=== PATIENT | male | born 1970 | race Two or more races ===

== ENCOUNTER 2020-04-15 18:31 | Inpatient (IN) | payer OTHER ==
[~2020-04-15] VITALS: Ht 162.6 cm; Wt 87.7 kg
[2020-04-15] MEDS ORDERED: HEPARIN SODIUM (PORCINE) 5000 UNITS/ML 1ML VIAL ONE (18:57)
[2020-04-15] MEDS ORDERED: ASPirin 325 MG TAB ONE (18:58)
[2020-04-15] MEDS ORDERED: NITROGLYCERIN 0.4 MG SL TAB SL ONE ×2 (18:58→19:00)
[2020-04-15] MEDS ORDERED: HEPARIN SODIUM (PORCINE) 5000 UNITS/ML 1ML VIAL IV ONE (19:00)
[2020-04-15] MEDS ORDERED: ASPirin 81 mg TAB PO ONE (19:00)
[2020-04-15] MEDS ORDERED: IODIXANOL 320MG/ML 100ML BTL IV ONE (19:05)
[2020-04-15] MEDS ORDERED: LIDOCAINE 2%HCL (LOCAL ANESTH.) INJ 20ML MDV ONE (19:05)
[2020-04-15] MEDS ORDERED: ANGIOMAX 250 MG VIAL IV ONE (19:09)
[2020-04-15] MEDS ORDERED: VERAPAMIL 2.5MG/ML INJ 2ML VIAL IV ONE (19:09)
[2020-04-15] MEDS ORDERED: fentaNYL CITRATE 100 MCG/2 ML VL ONE (19:10)
[2020-04-15] MEDS ORDERED: SODIUM CHL 0.9% 50 ML ONE (19:10)
[2020-04-15] MEDS ORDERED: MIDAZOLAM HCL 1MG/1ML-2 ML VIAL ONE (19:12)
[2020-04-15] MEDS ORDERED: OMEP-434 PO (19:32)
[2020-04-15] MEDS ORDERED: ATROPINE SULF 1 MG/10ml SYR ONE (19:46)
[2020-04-15] MEDS ORDERED: LIDOCAINE HCL 100 MG/5ML (2%) SYRG INJ IV ONE (19:47)
[2020-04-15] MEDS ORDERED: EPTIFIBATIDE INJ (2MG/ML) 10ML VIAL IV ONE (19:49)
[2020-04-15] MEDS ORDERED: TICAGRELOR 90 MG TAB ONE (19:55)
[2020-04-15 19:57] LABS: Anion Gap 4 (5-15); Basophils # (auto) 0.1 10 ^3/uL (0-0.2); Basophils % (auto) 0.7 % (0.0-2.0); Calcium 8.4 mg/dL (8.5-10.1); Carbon Dioxide 27 mmol/L (21-32); Chloride 105 mmol/L (98-107); Eosinophils # (auto) 0.1 10 ^3/uL (0-0.8); Eosinophils % (auto) 0.9 % (0.0-7.0); GFR African American 88 mL/min; GFR Non-African American 73 mL/min; Glucose 152 mg/dL (74-106); Hematocrit 46.1 % (41.0-53.0); Hemoglobin 16.2 g/dL (13.5-17.5); Lymphocytes # (auto) 2.5 10 ^3/uL (0.4-5.4); Mean Corpuscular Hemoglobin 33.9 pg (28.0-32.0); Mean Corpuscular Hgb Conc. 35.1 g/dL (32.0-36.0); Mean Corpuscular Volume 96.8 fL (80.0-100.0); Monocytes # (auto) 0.8 10 ^3/uL (0-1.3); Monocytes % (auto) 8.6 % (0.0-12.0); Neutrophils # (auto) 5.5 10 ^3/uL (1.6-8.6); Neutrophils % (auto) 61.8 % (37.0-80.0); Nucleated Red Blood Cells % 0.1 %; Platelet Count (auto) 201 10^3/uL (140-450); Potassium 3.7 mmol/L (3.5-5.1); Red Blood Cells 4.77 10^6/uL (4.5-5.90); Red Cell Distribution Width 13.2 % (11.8-14.3); Sodium 136 mmol/L (136-145)
[2020-04-15] MEDS ORDERED: ACETAMINOPHEN 500 MG TAB PO PRN (20:00)
[2020-04-15] MEDS ORDERED: ONDANSETRON HCL 4 MG/2 ML VIAL IV PRN (20:00)
[2020-04-15] MEDS ORDERED: SODIUM CHLORIDE 0.9% 1,000 ML IV SCH (20:00)
[2020-04-15 20:09] LABS: Blood Urea Nitrogen 17 mg/dL (7-18)
[2020-04-15] MEDS ORDERED: MORPHINE SULF INJ 2 MG/ML SYRINGE 1ML IV PRN (20:15)
[2020-04-15] MEDS ORDERED: NITROGLYCERIN 0.4 MG SL TAB SL PRN (20:15)
[2020-04-15 21:00] VITALS: BP 138/78
[2020-04-15] MEDS: ATORVASTATIN 20 MG TAB PO SCH (21:20)
[2020-04-15] MEDS: SODIUM CHLOR 0.9% PF (SALINE LOCK) 10ML VIAL/SYR IV SCH (21:20)
[2020-04-15 22:00] VITALS: BP 138/78
[2020-04-15] MEDS: HYDROcodone-ACET 5/325MG TAB PO PRN (23:17)
[2020-04-16] MEDS: SODIUM CHLORIDE 0.9% 1,000 ML IV SCH ×2 (00:07→09:35)
[2020-04-16] MEDS ORDERED: TERA2CAP45 PO (01:13)
[2020-04-16 05:00] VITALS: BP 134/77
[2020-04-16] MEDS: SODIUM CHLOR 0.9% PF (SALINE LOCK) 10ML VIAL/SYR IV SCH ×3 (05:40→21:45)
[2020-04-16] MEDS ORDERED: TICAGRELOR 90 MG TAB PO SCH ×2 (06:00→22:00)
[2020-04-16] MEDS: HYDROcodone-ACET 5/325MG TAB PO PRN ×2 (07:03→18:52)
[2020-04-16 09:00] VITALS: BP 134/70
[2020-04-16 09:35] LABS: Basophils # (auto) 0 10 ^3/uL (0-0.2); Basophils % (auto) 0.2 % (0.0-2.0); Eosinophils # (auto) 0 10 ^3/uL (0-0.8); Eosinophils % (auto) 0.4 % (0.0-7.0); Hematocrit 43.9 % (41.0-53.0); Hemoglobin 14.7 g/dL (13.5-17.5); Lymphocytes # (auto) 1.1 10 ^3/uL (0.4-5.4); Lymphocytes % (auto) 14.1 % (10.0-50.0); Mean Corpuscular Hemoglobin 32.3 pg (28.0-32.0); Mean Corpuscular Hgb Conc. 33.6 g/dL (32.0-36.0); Mean Corpuscular Volume 96.4 fL (80.0-100.0); Monocytes # (auto) 0.6 10 ^3/uL (0-1.3); Monocytes % (auto) 6.9 % (0.0-12.0); Neutrophils # (auto) 6.3 10 ^3/uL (1.6-8.6); Neutrophils % (auto) 78.4 % (37.0-80.0); Platelet Count (auto) 165 10^3/uL (140-450); Red Blood Cells 4.56 10^6/uL (4.5-5.90); Red Cell Distribution Width 13.2 % (11.8-14.3)
[2020-04-16 09:56] LABS: BUN/Creatinine Ratio 12.2; Potassium 3.7 mmol/L (3.5-5.1)
[2020-04-16] MEDS: LISINOPRIL 5 MG TAB PO SCH (10:03)
[2020-04-16] MEDS: ASPirin 81 mg TAB PO SCH (10:03)
[2020-04-16 11:54] LABS: Cholesterol 158 mg/dL (< 200)
[2020-04-16 11:56] LABS: HDL Cholesterol 27 mg/dL (40-59); Triglycerides 413 mg/dL (< 150)
[2020-04-16 13:00] VITALS: BP 137/86
[2020-04-16 17:00] VITALS: BP 123/86
[2020-04-16] MEDS ORDERED: CLOPIDOGREL 300 MG TAB PO ONE (18:00)
[2020-04-16] MEDS: CARVEDILOL 3.125 MG TAB PO SCH (21:45)
[2020-04-16] MEDS: ATORVASTATIN 20 MG TAB PO SCH (21:45)
[2020-04-16 22:00] VITALS: BP 120/79
[2020-04-17] MEDS: SODIUM CHLORIDE 0.9% 1,000 ML IV SCH (00:27)
[2020-04-17 05:00] VITALS: BP 121/73
[2020-04-17] MEDS: SODIUM CHLOR 0.9% PF (SALINE LOCK) 10ML VIAL/SYR IV SCH (05:49)
[2020-04-17 09:00] VITALS: BP 156/90
[2020-04-17 09:38] VITALS: BP 136/82
[2020-04-17] MEDS ORDERED: CLOPIDOGREL BISULFATE 75 MG TAB PO SCH (10:00)
[2020-04-17] MEDS: CARVEDILOL 3.125 MG TAB PO SCH (10:00)
[2020-04-17] MEDS: ASPirin 81 mg TAB PO SCH (11:04)
[2020-04-17] MEDS: LISINOPRIL 5 MG TAB PO SCH (11:05)
[2020-04-17 12:32] VITALS: BP 136/82
[2020-04-17 13:00] VITALS: BP 131/94
== END 2020-04-17 15:00 | disposition home or self-care (01) | DRG 247 ==
LOC: ER 18:31 → CATH 1 19:15 → TELE 19:16 → TELE-WESTW 21:33
PROVIDERS: ADMIT Internal Medicine; ATTEND Internal Medicine
PROC: 027034Z Dilation of Coronary Artery, One Artery with Drug-eluting Intraluminal Device, Percutaneous Approach (ICD-10-PCS; principal; 2020-04-15)
PROC: 4A023N7 Measurement of Cardiac Sampling and Pressure, Left Heart, Percutaneous Approach (ICD-10-PCS; 2020-04-15)
PROC: B211YZZ Fluoroscopy of Multiple Coronary Arteries using Other Contrast (ICD-10-PCS; 2020-04-15)
DX: I21.19 ST elevation (STEMI) myocardial infarction involving other coronary artery of inferior wall (principal); F12.10 Cannabis abuse, uncomplicated; G89.29 Other chronic pain; I10 Essential (primary) hypertension; I25.10 Atherosclerotic heart disease of native coronary artery without angina pectoris; I73.9 Peripheral vascular disease, unspecified; K21.9 Gastro-esophageal reflux disease without esophagitis
CPT/HCPCS: 36415; 80048; 80061; 84484; 85025; 87081; 92928; 93306; 93458; 96374; 99152; 99153; 99291; C1874; C1887; G0378; J2250; Q9967

== ENCOUNTER 2020-12-03 19:27 | Emergency (ER) | payer OTHER ==
[~2020-12-03] VITALS: Ht 162.6 cm; Wt 81.6 kg
[~2020-12-03 19:27] MED LIST: OMEP-434 PO; TERA2CAP45 PO
[2020-12-03 22:03] LABS: Albumin 3.9 g/dL (3.4-5.0); Anion Gap 8 (5-15); Blood Urea Nitrogen 25 mg/dL (7-18); Calcium 8.8 mg/dL (8.5-10.1); Carbon Dioxide 25 mmol/L (21-32); Chloride 106 mmol/L (98-107); Glucose 134 mg/dL (74-106); Potassium 3.8 mmol/L (3.5-5.1); Sodium 139 mmol/L (136-145)
[2020-12-03 22:08] LABS: Alanine Aminotransferase 53 U/L (16-61); Alkaline Phosphatase 87 U/L (45-117); Aspartate Aminotransferase 32 U/L (15-37); BUN/Creatinine Ratio 28.7; Bilirubin, Total 0.4 mg/dL (0.2-1.0); GFR African American 119 mL/min; GFR Non-African American 98 mL/min; Total Protein 7.2 g/dL (6.4-8.2)
[2020-12-03] MEDS ORDERED: LORazepam 0.5 MG TAB PO ONE (23:15)
[2020-12-04] VITALS: BP 105/58
== END 2020-12-03 23:14 | disposition home or self-care (01) ==
LOC: ER 19:27
DX: R07.89 Other chest pain (principal); F41.9 Anxiety disorder, unspecified; K21.9 Gastro-esophageal reflux disease without esophagitis; E78.5 Hyperlipidemia, unspecified; I10 Essential (primary) hypertension
CPT/HCPCS: 36415; 71045; 80053; 83880; 84484; 93005

== ENCOUNTER 2021-05-02 17:50 | Emergency (ER) | payer OTHER ==
[~2021-05-02] VITALS: Ht 165.1 cm; Wt 81.6 kg
[2021-05-02 18:38] LABS: Basophils # (auto) 0 10 ^3/uL (0-0.2); Basophils % (auto) 0.5 % (0.0-2.0); Eosinophils # (auto) 0.1 10 ^3/uL (0-0.8); Eosinophils % (auto) 0.9 % (0.0-7.0); Hematocrit 41.1 % (41.0-53.0); Hemoglobin 14.7 g/dL (13.5-17.5); Lymphocytes # (auto) 2.1 10 ^3/uL (0.4-5.4); Lymphocytes % (auto) 29.4 % (10.0-50.0); Mean Corpuscular Hemoglobin 34.6 pg (28.0-32.0); Mean Corpuscular Hgb Conc. 35.9 g/dL (32.0-36.0); Mean Corpuscular Volume 96.4 fL (80.0-100.0); Monocytes # (auto) 0.7 10 ^3/uL (0-1.3); Monocytes % (auto) 9.2 % (0.0-12.0); Neutrophils # (auto) 4.3 10 ^3/uL (1.6-8.6); Red Blood Cells 4.26 10^6/uL (4.5-5.90); Red Cell Distribution Width 12.8 % (11.8-14.3); White Blood Cell 7.2 10^3/uL (4.4-10.8)
[2021-05-02 18:52] LABS: Albumin 3.8 g/dL (3.4-5.0); Anion Gap 4 (5-15); Blood Urea Nitrogen 22 mg/dL (7-18); Calcium 8.2 mg/dL (8.5-10.1); Carbon Dioxide 24 mmol/L (21-32); Chloride 111 mmol/L (98-107); Glucose 98 mg/dL (74-106); Potassium 4.2 mmol/L (3.5-5.1); Sodium 139 mmol/L (136-145)
[2021-05-02 18:54] LABS: Alanine Aminotransferase 34 U/L (16-61); Aspartate Aminotransferase 16 U/L (15-37); BUN/Creatinine Ratio 27.5; GFR African American 131 mL/min; GFR Non-African American 108 mL/min
[2021-05-02 18:59] LABS: Alkaline Phosphatase 76 U/L (45-117); Bilirubin, Total 0.3 mg/dL (0.2-1.0); Total Protein 7.4 g/dL (6.4-8.2)
[2021-05-02 23:00] VITALS: BP 128/81
== END 2021-05-02 23:07 | disposition home or self-care (01) ==
LOC: ER 17:50
DX: R07.89 Other chest pain (principal); F12.10 Cannabis abuse, uncomplicated; I10 Essential (primary) hypertension; I25.2 Old myocardial infarction; E78.5 Hyperlipidemia, unspecified; Z95.1 Presence of aortocoronary bypass graft
CPT/HCPCS: 36415; 71045; 80053; 84484; 85025; 93005

== ENCOUNTER 2021-08-03 14:00 | Emergency (ER) | payer OTHER ==
[~2021-08-03] VITALS: Ht 162.6 cm; Wt 77.1 kg
[2021-08-03] MEDS ORDERED: ASPirin 81 mg TAB PO ONE (14:30)
[2021-08-03 15:23] LABS: Basophils # (auto) 0 10 ^3/uL (0-0.2); Basophils % (auto) 0.4 % (0.0-2.0); Eosinophils # (auto) 0.1 10 ^3/uL (0-0.8); Eosinophils % (auto) 0.8 % (0.0-7.0); Hematocrit 42.5 % (41.0-53.0); Hemoglobin 14.7 g/dL (13.5-17.5); Lymphocytes # (auto) 1.2 10 ^3/uL (0.4-5.4); Lymphocytes % (auto) 17.4 % (10.0-50.0); Mean Corpuscular Hemoglobin 33.2 pg (28.0-32.0); Mean Corpuscular Hgb Conc. 34.7 g/dL (32.0-36.0); Mean Corpuscular Volume 95.5 fL (80.0-100.0); Monocytes # (auto) 0.4 10 ^3/uL (0-1.3); Neutrophils # (auto) 5.1 10 ^3/uL (1.6-8.6); Neutrophils % (auto) 75.4 % (37.0-80.0); Nucleated Red Blood Cells % 0.1 %; Red Blood Cells 4.44 10^6/uL (4.5-5.90); Red Cell Distribution Width 12.5 % (11.8-14.3); White Blood Cell 6.8 10^3/uL (4.4-10.8)
[2021-08-03 15:52] LABS: Albumin 3.5 g/dL (3.4-5.0); Calcium 8.2 mg/dL (8.5-10.1); Magnesium 2.5 mg/dL (1.6-2.6); Potassium 3.8 mmol/L (3.5-5.1)
[2021-08-03 15:58] LABS: BUN/Creatinine Ratio 22.3; Bilirubin, Total 0.4 mg/dL (0.2-1.0); Total Protein 7.1 g/dL (6.4-8.2)
[2021-08-03 19:53] VITALS: BP 114/72
== END 2021-08-03 16:59 | disposition short-term general hospital (02) ==
LOC: ER 14:00
DX: I24.9 Acute ischemic heart disease, unspecified (principal); F12.10 Cannabis abuse, uncomplicated; I25.2 Old myocardial infarction; I10 Essential (primary) hypertension; E78.5 Hyperlipidemia, unspecified; Z20.822 Contact with and (suspected) exposure to COVID-19; Z98.61 Coronary angioplasty status
CPT/HCPCS: 36415; 71046; 80053; 83735; 84484; 85025; 85379; 87426; 93005

== ENCOUNTER 2022-05-15 19:20 | Inpatient (IN) | payer OTHER ==
[~2022-05-15] VITALS: Ht 162.6 cm; Wt 80.6 kg
[2022-05-15 20:32] LABS: Hemoglobin 13.8 g/dL (13.5-17.5); Mean Corpuscular Volume 99.3 fL (80.0-100.0)
[2022-05-15 20:36] LABS: Basophils # (auto) 0 10 ^3/uL (0-0.2); Basophils % (auto) 0.6 % (0.0-2.0); Eosinophils # (auto) 0.1 10 ^3/uL (0-0.8); Eosinophils % (auto) 1.4 % (0.0-7.0); Hematocrit 40.5 % (41.0-53.0); Lymphocytes % (auto) 33.7 % (10.0-50.0); Mean Corpuscular Hemoglobin 33.9 pg (28.0-32.0); Mean Corpuscular Hgb Conc. 34.2 g/dL (32.0-36.0); Monocytes # (auto) 0.6 10 ^3/uL (0-1.3); Monocytes % (auto) 9.7 % (0.0-12.0); Neutrophils # (auto) 3.3 10 ^3/uL (1.6-8.6); Neutrophils % (auto) 54.6 % (37.0-80.0); Nucleated Red Blood Cells % 0.1 %; Red Blood Cells 4.08 10^6/uL (4.5-5.90); White Blood Cell 6.1 10^3/uL (4.4-10.8)
[2022-05-15] MEDS ORDERED: ASPirin 325 MG TAB PO ONE (20:45)
[2022-05-15 20:47] LABS: Albumin 3.5 g/dL (3.4-5.0); Calcium 8.3 mg/dL (8.5-10.1); Potassium 3.9 mmol/L (3.5-5.1)
[2022-05-15 20:50] LABS: BUN/Creatinine Ratio 30.1
[2022-05-15 20:56] LABS: Bilirubin, Total 0.4 mg/dL (0.2-1.0); Total Protein 6.6 g/dL (6.4-8.2)
[2022-05-16] MEDS ORDERED: ONDANSETRON HCL 4 MG/2 ML VIAL IV PRN (04:30)
[2022-05-16] MEDS ORDERED: NITROGLYCERIN 0.4 MG SL TAB SL PRN (04:30)
[2022-05-16] MEDS ORDERED: MORPHINE SULFATE INJ 2 MG/ml SYRG IV PRN (04:30)
[2022-05-16] MEDS ORDERED: ACETAMINOPHEN 325 MG TAB PO PRN (04:30)
[2022-05-16] MEDS: PANTOPRAZOLE 40 MG TAB PO SCH (09:42)
[2022-05-16] MEDS: ENOXAPARIN SOD 40 MG/0.4 ML SYRINGE SC SCH (09:42)
[2022-05-16] MEDS: ASPirin 81 mg TAB PO SCH (09:43)
[2022-05-16 22:00] VITALS: BP 136/81
[2022-05-16] MEDS: ATORVASTATIN 20 MG TAB PO SCH (22:30)
[2022-05-16] MEDS: TEMAZEPAM 15 MG CAP PO PRN (22:31)
[2022-05-16] MEDS ORDERED: CARV3.1240 PO (22:33)
[2022-05-16] MEDS ORDERED: LISI-275 PO (22:33)
[2022-05-16] MEDS ORDERED: ROSU1TAB14 PO (22:33)
[2022-05-16] MEDS ORDERED: MIRT1TAB38 PO (22:33)
[2022-05-16] MEDS ORDERED: ASPI1TAB20 PO (22:33)
[2022-05-17 05:00] VITALS: BP 128/80
[2022-05-17 06:12] LABS: Hemoglobin 14.1 g/dL (13.5-17.5); White Blood Cell 5.7 10^3/uL (4.4-10.8)
[2022-05-17 06:16] LABS: Basophils # (auto) 0 10 ^3/uL (0-0.2); Basophils % (auto) 0.5 % (0.0-2.0); Eosinophils # (auto) 0.1 10 ^3/uL (0-0.8); Eosinophils % (auto) 1.3 % (0.0-7.0); Hematocrit 40.1 % (41.0-53.0); Lymphocytes # (auto) 1.7 10 ^3/uL (0.4-5.4); Lymphocytes % (auto) 30.7 % (10.0-50.0); Mean Corpuscular Hemoglobin 33.8 pg (28.0-32.0); Mean Corpuscular Volume 96.6 fL (80.0-100.0); Monocytes # (auto) 0.5 10 ^3/uL (0-1.3); Monocytes % (auto) 9.1 % (0.0-12.0); Neutrophils # (auto) 3.3 10 ^3/uL (1.6-8.6); Neutrophils % (auto) 58.4 % (37.0-80.0); Nucleated Red Blood Cells % 0.3 %; Red Blood Cells 4.16 10^6/uL (4.5-5.90); Red Cell Distribution Width 13.1 % (11.8-14.3)
[2022-05-17 06:32] LABS: Albumin 3.5 g/dL (3.4-5.0); BUN/Creatinine Ratio 22.6; Calcium 8.3 mg/dL (8.5-10.1); Potassium 3.9 mmol/L (3.5-5.1)
[2022-05-17 06:35] LABS: Bilirubin, Total 0.5 mg/dL (0.2-1.0); Total Protein 6.3 g/dL (6.4-8.2)
[2022-05-17] MEDS ORDERED: ADENOSINE 63 MG in GIVE UN-DILUTED 0 ML IV ONE (08:00)
[2022-05-17 09:10] VITALS: BP 119/65
[2022-05-17] MEDS: ENOXAPARIN SOD 40 MG/0.4 ML SYRINGE SC SCH (10:00)
[2022-05-17] MEDS: PANTOPRAZOLE 40 MG TAB PO SCH (11:08)
[2022-05-17] MEDS: ASPirin 81 mg TAB PO SCH (11:08)
[2022-05-17 12:23] VITALS: BP 143/96
[2022-05-17 17:00] VITALS: BP 136/80
[2022-05-17 21:57] VITALS: BP 123/73
[2022-05-17] MEDS: ATORVASTATIN 20 MG TAB PO SCH (22:00)
[2022-05-18] MEDS: TEMAZEPAM 15 MG CAP PO PRN ×2 (00:03→23:01)
[2022-05-18 05:00] VITALS: BP 100/56
[2022-05-18 08:46] VITALS: BP 143/96
[2022-05-18] MEDS: ASPirin 81 mg TAB PO SCH (10:28)
[2022-05-18] MEDS: PANTOPRAZOLE 40 MG TAB PO SCH (10:28)
[2022-05-18] MEDS: ENOXAPARIN SOD 40 MG/0.4 ML SYRINGE SC SCH (10:29)
[2022-05-18 12:44] VITALS: BP 133/79
[2022-05-18 16:49] VITALS: BP 130/78
[2022-05-18] MEDS: ATORVASTATIN 20 MG TAB PO SCH (21:47)
[2022-05-18 22:17] VITALS: BP 132/77
[2022-05-19 04:57] VITALS: BP 101/68
[2022-05-19 09:11] VITALS: BP 143/90
[2022-05-19] MEDS: ENOXAPARIN SOD 40 MG/0.4 ML SYRINGE SC SCH (09:30)
[2022-05-19] MEDS: ASPirin 81 mg TAB PO SCH (09:30)
[2022-05-19] MEDS: PANTOPRAZOLE 40 MG TAB PO SCH (09:30)
[2022-05-19 10:08] VITALS: BP 123/72
== END 2022-05-19 10:00 | disposition home or self-care (01) | DRG 309 ==
LOC: ER 19:20 → TELE 05-16 04:26 → TELE-EAST 05-16 21:48
PROVIDERS: ADMIT Nurse Practitioner; ATTEND Family Medicine
DX: R00.1 Bradycardia, unspecified (principal); I25.110 Atherosclerotic heart disease of native coronary artery with unstable angina pectoris; R07.89 Other chest pain; I10 Essential (primary) hypertension; E78.00 Pure hypercholesterolemia, unspecified; K21.9 Gastro-esophageal reflux disease without esophagitis; Z20.822 Contact with and (suspected) exposure to COVID-19; I25.2 Old myocardial infarction; Z83.3 Family history of diabetes mellitus; Z95.5 Presence of coronary angioplasty implant and graft
CPT/HCPCS: 36415; 71045; 78452; 80053; 82550; 83605; 83880; 84443; 84484; 85025; 85379; 93005; 93017; 93306; G0378; J0153

== ENCOUNTER 2022-09-15 11:40 | Inpatient (IN) | payer OTHER ==
[~2022-09-15] VITALS: Ht 165.1 cm; Wt 79.8 kg
[~2022-09-15 11:40] MED LIST changes: +ASPI1TAB20 PO; +CARV3.1240 PO; +LISI-275 PO; +MIRT1TAB38 PO; +ROSU1TAB14 PO
[2022-09-15] MEDS ORDERED: ONDANSETRON ODT 4 MG TAB PO ONE (12:00)
[2022-09-15] MEDS ORDERED: HYDROcodone-ACET 5/325MG TAB PO ONE (12:00)
[2022-09-15] MEDS ORDERED: ASPirin 81 mg TAB PO ONE (12:00)
[2022-09-15 12:06] LABS: Basophils # (auto) 0 10 ^3/uL (0-0.2); Basophils % (auto) 0.6 % (0.0-2.0); Eosinophils # (auto) 0 10 ^3/uL (0-0.8); Eosinophils % (auto) 0.4 % (0.0-7.0); Hematocrit 43.5 % (41.0-53.0); Hemoglobin 15.1 g/dL (13.5-17.5); Lymphocytes % (auto) 35.6 % (10.0-50.0); Mean Corpuscular Hemoglobin 33.1 pg (28.0-32.0); Mean Corpuscular Hgb Conc. 34.7 g/dL (32.0-36.0); Mean Corpuscular Volume 95.5 fL (80.0-100.0); Monocytes # (auto) 0.6 10 ^3/uL (0-1.3); Monocytes % (auto) 7.1 % (0.0-12.0); Neutrophils # (auto) 4.8 10 ^3/uL (1.6-8.6); Neutrophils % (auto) 56.3 % (37.0-80.0); Red Blood Cells 4.55 10^6/uL (4.5-5.90); Red Cell Distribution Width 12.9 % (11.8-14.3); White Blood Cell 8.5 10^3/uL (4.4-10.8)
[2022-09-15 12:23] LABS: Magnesium 2.1 mg/dL (1.6-2.6); Potassium 3.9 mmol/L (3.5-5.1)
[2022-09-15 12:25] LABS: BUN/Creatinine Ratio 16.9
[2022-09-15 12:28] LABS: Bilirubin, Total 0.4 mg/dL (0.2-1.0); Total Protein 7.1 g/dL (6.4-8.2)
[2022-09-15 13:21] LABS: Urine Bacteria NONE SEEN /hpf (None Seen); Urine Blood Negative /uL (Negative); Urine Mucus FEW (None Seen); Urine Specific Gravity 1.024 (1.001-1.035); Urine WBC 1 /hpf (0 - 3)
[2022-09-15] MEDS ORDERED: MORPHINE SULFATE 4 MG/ML SYR/VIAL IV PRN (18:15)
[2022-09-15] MEDS ORDERED: MAALOX PLUS or MAALOX 30 ML PO ONE (18:15)
[2022-09-15] MEDS ORDERED: ACETAMINOPHEN 325 MG TAB PO PRN (18:15)
[2022-09-15] MEDS ORDERED: ONDANSETRON HCL 4 MG/2 ML VIAL IV PRN (18:15)
[2022-09-15] MEDS ORDERED: DEXTROSE (50%) 50ML SYRG IV PRN (18:15)
[2022-09-15] MEDS ORDERED: NITROGLYCERIN 0.4 MG SL TAB SL PRN (18:15)
[2022-09-15] MEDS: ATORVASTATIN 20 MG TAB PO SCH (22:00)
[2022-09-15] MEDS: CARVEDILOL 3.125 MG TAB PO SCH (23:04)
[2022-09-15] MEDS: InsuLIN REG 1unit/0.01ml Soln (100units/ml) SC SCH (23:05)
[2022-09-16 06:29] LABS: Basophils # (auto) 0 10 ^3/uL (0-0.2); Basophils % (auto) 0.3 % (0.0-2.0); Eosinophils # (auto) 0.1 10 ^3/uL (0-0.8); Eosinophils % (auto) 1.5 % (0.0-7.0); Hematocrit 39.3 % (41.0-53.0); Hemoglobin 13.4 g/dL (13.5-17.5); Lymphocytes # (auto) 1.7 10 ^3/uL (0.4-5.4); Lymphocytes % (auto) 32.1 % (10.0-50.0); Mean Corpuscular Hemoglobin 32.6 pg (28.0-32.0); Mean Corpuscular Volume 95.8 fL (80.0-100.0); Monocytes # (auto) 0.6 10 ^3/uL (0-1.3); Monocytes % (auto) 11.2 % (0.0-12.0); Neutrophils # (auto) 2.9 10 ^3/uL (1.6-8.6); Neutrophils % (auto) 54.9 % (37.0-80.0); Nucleated Red Blood Cells % 0.2 %; Red Cell Distribution Width 12.5 % (11.8-14.3); White Blood Cell 5.3 10^3/uL (4.4-10.8)
[2022-09-16 06:47] LABS: BUN/Creatinine Ratio 28.4; Calcium 8.6 mg/dL (8.5-10.1)
[2022-09-16] MEDS: InsuLIN REG 1unit/0.01ml Soln (100units/ml) SC SCH ×4 (07:00→23:11)
[2022-09-16] MEDS: DOCUSATE SOD 100 MG CAP PO SCH (09:49)
[2022-09-16] MEDS: CLOPIDOGREL BISULFATE 75 MG TAB PO SCH (09:49)
[2022-09-16] MEDS: ASPirin 81 mg TAB PO SCH (09:49)
[2022-09-16] MEDS: CARVEDILOL 3.125 MG TAB PO SCH ×2 (09:50→23:11)
[2022-09-16] MEDS: LISINOPRIL 5 MG TAB PO SCH (09:50)
[2022-09-16] MEDS: ACCU-CHEK COMFORT CURVE STRIP VI SCH ×3 (11:30→23:11)
[2022-09-16] MEDS: HYDROcodone-ACET 5/325MG TAB PO PRN (15:32)
[2022-09-16 22:39] VITALS: BP 132/87
[2022-09-16] MEDS: ATORVASTATIN 20 MG TAB PO SCH (23:12)
[2022-09-16] MEDS ORDERED: PANT40TA2 PO (23:25)
[2022-09-17 05:00] VITALS: BP 110/63
[2022-09-17 08:00] VITALS: BP 120/58
[2022-09-17 08:30] VITALS: BP 120/58
[2022-09-17] MEDS: ASPirin 81 mg TAB PO SCH (10:03)
[2022-09-17] MEDS: DOCUSATE SOD 100 MG CAP PO SCH (10:03)
[2022-09-17] MEDS: CLOPIDOGREL BISULFATE 75 MG TAB PO SCH (10:03)
[2022-09-17] MEDS: LISINOPRIL 5 MG TAB PO SCH (10:04)
[2022-09-17] MEDS: CARVEDILOL 3.125 MG TAB PO SCH ×2 (10:05→21:43)
[2022-09-17 12:25] VITALS: BP 132/81
[2022-09-17] MEDS ORDERED: MELO1TAB56 PO (14:15)
[2022-09-17 16:25] VITALS: BP 135/78
[2022-09-17] MEDS: ATORVASTATIN 20 MG TAB PO SCH (21:43)
[2022-09-17] MEDS: ZOLPIDEM TARTRATE 5 MG TAB PO PRN (21:43)
[2022-09-17 22:00] VITALS: BP 139/79
[2022-09-18 05:00] VITALS: BP 119/76
[2022-09-18 09:00] VITALS: BP 118/68
[2022-09-18] MEDS: ASPirin 81 mg TAB PO SCH (10:19)
[2022-09-18] MEDS: DOCUSATE SOD 100 MG CAP PO SCH (10:19)
[2022-09-18] MEDS: PANTOPRAZOLE 40 MG TAB PO SCH (10:22)
[2022-09-18] MEDS: CARVEDILOL 3.125 MG TAB PO SCH ×2 (10:22→22:00)
[2022-09-18] MEDS: CLOPIDOGREL BISULFATE 75 MG TAB PO SCH (10:22)
[2022-09-18] MEDS: HYDROcodone-ACET 5/325MG TAB PO PRN (12:11)
[2022-09-18 13:00] VITALS: BP 130/74
[2022-09-18 17:00] VITALS: BP 139/79
[2022-09-18 22:00] VITALS: BP 133/84
[2022-09-18] MEDS: ATORVASTATIN 20 MG TAB PO SCH (22:49)
[2022-09-18] MEDS: ZOLPIDEM TARTRATE 5 MG TAB PO PRN (22:53)
[2022-09-19 05:00] VITALS: BP 103/49
[2022-09-19] MEDS ORDERED: ADENOSINE 70 MG in GIVE UN-DILUTED 0 ML IV STA (08:07)
[2022-09-19 09:00] VITALS: BP 124/80
[2022-09-19] MEDS: DOCUSATE SOD 100 MG CAP PO SCH (09:41)
[2022-09-19] MEDS: ASPirin 81 mg TAB PO SCH (09:41)
[2022-09-19] MEDS: PANTOPRAZOLE 40 MG TAB PO SCH (09:41)
[2022-09-19] MEDS: CLOPIDOGREL BISULFATE 75 MG TAB PO SCH (09:42)
[2022-09-19] MEDS: CARVEDILOL 3.125 MG TAB PO SCH ×2 (09:43→22:00)
[2022-09-19 13:00] VITALS: BP 124/77
[2022-09-19 17:02] VITALS: BP 124/88
[2022-09-19 20:00] VITALS: BP 129/85
[2022-09-19 22:00] VITALS: BP 129/85
[2022-09-19] MEDS: ATORVASTATIN 20 MG TAB PO SCH (22:17)
[2022-09-19] MEDS: ZOLPIDEM TARTRATE 5 MG TAB PO PRN (22:17)
[2022-09-20] VITALS (10 sets, daily range): BP systolic 119–153; BP diastolic 79–95
[2022-09-20] MEDS: CLOPIDOGREL BISULFATE 75 MG TAB PO SCH (08:06)
[2022-09-20] MEDS: PANTOPRAZOLE 40 MG TAB PO SCH (08:07)
[2022-09-20] MEDS: DOCUSATE SOD 100 MG CAP PO SCH (08:07)
[2022-09-20] MEDS: LORazepam 0.5 MG TAB PO PRN ×2 (08:07→21:26)
[2022-09-20] MEDS: ASPirin 81 mg TAB PO SCH (08:07)
[2022-09-20 09:47] LABS: INR 1.03 (0.9-1.15); Partial Thromboplastin Time 28.6 sec (24.6-33.4)
[2022-09-20] MEDS: CARVEDILOL 3.125 MG TAB PO SCH ×2 (10:00→21:28)
[2022-09-20] MEDS ORDERED: ANGIOMAX 250 MG VIAL IV ONE (13:28)
[2022-09-20] MEDS ORDERED: MIDAZOLAM HCL 2MG/2ML 2ml VIAL (1mg/ml) ONE (13:29)
[2022-09-20] MEDS ORDERED: VERAPAMIL 2.5MG/ML INJ 2ML VIAL IV ONE (13:29)
[2022-09-20] MEDS ORDERED: fentaNYL CITRATE 100 MCG/2 ML VL ONE (13:29)
[2022-09-20] MEDS ORDERED: SODIUM CHL 0.9% 50 ML ONE (13:29)
[2022-09-20] MEDS ORDERED: HEPARIN SODIUM (PORCINE) 5000 UNITS/ML 1ML VIAL ONE (13:29)
[2022-09-20] MEDS ORDERED: IODIXANOL 320MG/ML 100ML BTL IV ONE ×2 (13:29→14:02)
[2022-09-20] MEDS ORDERED: LIDOCAINE 2%HCL (LOCAL ANESTH.) INJ 20ML MDV ONE (13:30)
[2022-09-20] MEDS ORDERED: ATROPINE SULF 1 MG/10ml SYR ONE (14:06)
[2022-09-20] MEDS ORDERED: CLOPIDOGREL 300 MG TAB ONE (14:14)
[2022-09-20] MEDS: HYDROcodone-ACET 5/325MG TAB PO PRN (21:26)
[2022-09-20] MEDS: ATORVASTATIN 20 MG TAB PO SCH (21:27)
[2022-09-21 05:00] VITALS: BP 113/66
[2022-09-21 09:00] VITALS: BP 130/80
[2022-09-21] MEDS: CLOPIDOGREL BISULFATE 75 MG TAB PO SCH (10:14)
[2022-09-21] MEDS: ASPirin 81 mg TAB PO SCH (10:14)
[2022-09-21] MEDS: DOCUSATE SOD 100 MG CAP PO SCH (10:14)
[2022-09-21] MEDS: PANTOPRAZOLE 40 MG TAB PO SCH (10:14)
[2022-09-21] MEDS: CARVEDILOL 3.125 MG TAB PO SCH (10:15)
[2022-09-21] MEDS ORDERED: CLOP75TA70 PO (12:55)
[2022-09-21] MEDS ORDERED: CAR3125T PO (12:55)
[2022-09-21 13:00] VITALS: BP 132/84
[2022-09-21 14:35] VITALS: BP 130/80
== END 2022-09-21 15:00 | disposition home or self-care (01) | DRG 247 ==
LOC: ER 11:40 → TELE 18:20 → TELE-WESTW 09-16 21:14
PROVIDERS: ADMIT Hospitalist; ATTEND Internal Medicine
PROC: 027035Z Dilation of Coronary Artery, One Artery with Two Drug-eluting Intraluminal Devices, Percutaneous Approach (ICD-10-PCS; principal; 2022-09-20)
PROC: 4A023N7 Measurement of Cardiac Sampling and Pressure, Left Heart, Percutaneous Approach (ICD-10-PCS; 2022-09-20)
PROC: B211YZZ Fluoroscopy of Multiple Coronary Arteries using Other Contrast (ICD-10-PCS; 2022-09-20)
PROC: B215YZZ Fluoroscopy of Left Heart using Other Contrast (ICD-10-PCS; 2022-09-20)
DX: I25.110 Atherosclerotic heart disease of native coronary artery with unstable angina pectoris (principal); K21.9 Gastro-esophageal reflux disease without esophagitis; E66.9 Obesity, unspecified; Z68.30 Body mass index [BMI] 30.0-30.9, adult; Z20.822 Contact with and (suspected) exposure to COVID-19; F12.90 Cannabis use, unspecified, uncomplicated; I10 Essential (primary) hypertension; I50.9 Heart failure, unspecified; F41.9 Anxiety disorder, unspecified; E78.5 Hyperlipidemia, unspecified; Z79.82 Long term (current) use of aspirin; Z83.3 Family history of diabetes mellitus; I25.2 Old myocardial infarction
CPT/HCPCS: 36415; 71046; 78452; 80048; 80053; 81001; 82962; 83735; 83880; 84484; 85025; 85379; 85610; 85730; 87426; 92928; 92929; 93005; 93017; 93306; 93458; 99152; 99153; C1874; C1887; G0378; J0153; J2250; J2405; Q0162; Q9967

== ENCOUNTER 2022-10-09 12:34 | Emergency (ER) | payer OTHER ==
[~2022-10-09] VITALS: Ht 162.6 cm; Wt 78.3 kg
[~2022-10-09 12:34] MED LIST changes: +CAR3125T PO; -CARV3.1240 PO; +CLOP75TA70 PO; +MELO1TAB56 PO; -MIRT1TAB38 PO; -OMEP-434 PO; +PANT40TA2 PO; -TERA2CAP45 PO
[2022-10-09 13:38] LABS: Basophils # (auto) 0 10 ^3/uL (0-0.2); Basophils % (auto) 0.6 % (0.0-2.0); Eosinophils # (auto) 0 10 ^3/uL (0-0.8); Eosinophils % (auto) 0.6 % (0.0-7.0); Hematocrit 41.6 % (41.0-53.0); Hemoglobin 14.8 g/dL (13.5-17.5); Lymphocytes # (auto) 1.5 10 ^3/uL (0.4-5.4); Lymphocytes % (auto) 25.4 % (10.0-50.0); Mean Corpuscular Hemoglobin 33.4 pg (28.0-32.0); Mean Corpuscular Hgb Conc. 35.6 g/dL (32.0-36.0); Monocytes # (auto) 0.5 10 ^3/uL (0-1.3); Neutrophils # (auto) 3.8 10 ^3/uL (1.6-8.6); Neutrophils % (auto) 64.4 % (37.0-80.0); Nucleated Red Blood Cells % 0.1 %; Red Blood Cells 4.42 10^6/uL (4.5-5.90); Red Cell Distribution Width 12.3 % (11.8-14.3); White Blood Cell 5.9 10^3/uL (4.4-10.8)
[2022-10-09] MEDS ORDERED: IOHEXOL 350 MG/ML 100ML IJ ONE (13:38)
[2022-10-09 13:57] LABS: Albumin 3.8 g/dL (3.4-5.0); BUN/Creatinine Ratio 14.8; Calcium 8.9 mg/dL (8.5-10.1); Potassium 4.3 mmol/L (3.5-5.1)
[2022-10-09 14:01] LABS: Bilirubin, Total 0.6 mg/dL (0.2-1.0); Total Protein 7.4 g/dL (6.4-8.2)
[2022-10-09 18:20] VITALS: BP 129/82
== END 2022-10-09 18:24 | disposition home or self-care (01) ==
LOC: ER 12:34
DX: R68.84 Jaw pain (principal); I25.10 Atherosclerotic heart disease of native coronary artery without angina pectoris; K21.9 Gastro-esophageal reflux disease without esophagitis; E78.5 Hyperlipidemia, unspecified; F12.90 Cannabis use, unspecified, uncomplicated; I10 Essential (primary) hypertension; Z79.899 Other long term (current) drug therapy; Z98.890 Other specified postprocedural states; Z87.891 Personal history of nicotine dependence
CPT/HCPCS: 36415; 70496; 80053; 84484; 85025; 93005; 99285; Q9967

== ENCOUNTER 2024-06-15 13:50 | Inpatient (IN) | payer OTHER ==
[~2024-06-15] VITALS: Ht 162.6 cm; Wt 82.5 kg
[~2024-06-15 13:50] MED LIST changes: -CAR3125T PO; +CARV-214 PO; +MELO15TA29 PO; -MELO1TAB56 PO; -ROSU1TAB14 PO; +ROSU20TA56 PO
[2024-06-15 14:22] LABS: Basophils # (auto) 0 10 ^3/uL (0-0.2); Basophils % (auto) 0.4 % (0.0-2.0); Eosinophils # (auto) 0 10 ^3/uL (0-0.8); Eosinophils % (auto) 0.2 % (0.0-7.0); Hematocrit 45.4 % (41.0-53.0); Lymphocytes # (auto) 2.2 10 ^3/uL (0.4-5.4); Lymphocytes % (auto) 30.1 % (10.0-50.0); Mean Corpuscular Hemoglobin 34.5 pg (28.0-32.0); Mean Corpuscular Hgb Conc. 35.2 g/dL (32.0-36.0); Monocytes # (auto) 0.6 10 ^3/uL (0-1.3); Monocytes % (auto) 8.7 % (0.0-12.0); Neutrophils # (auto) 4.5 10 ^3/uL (1.6-8.6); Neutrophils % (auto) 60.6 % (37.0-80.0); Platelet Count (auto) 192 10^3/uL (140-450); Red Blood Cells 4.63 10^6/uL (4.5-5.90); Red Cell Distribution Width 12.6 % (11.8-14.3); White Blood Cell 7.4 10^3/uL (4.4-10.8)
[2024-06-15 14:34] LABS: Alanine Aminotransferase 28 U/L (7-40); Albumin 4.6 g/dL (3.2-4.8); Alkaline Phosphatase 78 U/L (46-116); Anion Gap 8 (5-15); Aspartate Aminotransferase 17 U/L (13-40); BUN/Creatinine Ratio 24.4 (10.0-20.0); Blood Urea Nitrogen 20 mg/dL (9-23); Calcium 9.7 mg/dL (8.7-10.4); Carbon Dioxide 22 mmol/L (20-31); Chloride 110 mmol/L (98-107); Glucose 92 mg/dL (74-106); Potassium 4.3 mmol/L (3.5-5.1); Sodium 140 mmol/L (136-145)
[2024-06-15 14:35] LABS: Bilirubin, Total 0.7 mg/dL (0.2-1.0); Total Protein 7.1 g/dL (5.7-8.2)
[2024-06-15] MEDS: ASPirin 325 MG TAB PO ONE (14:36)
[2024-06-15 14:46] VITALS: PULSE 52; RESP 18; O2SAT 96
[2024-06-15] MEDS: NITROGLYCERIN 0.4 MG SL TAB SL ONE (16:25)
[2024-06-15 19:20] VITALS: PULSE 62; RESP 19; O2SAT 96
[2024-06-15] MEDS ORDERED: DOCUSATE SOD 100 MG CAP PO PRN (20:15)
[2024-06-15] MEDS ORDERED: ACETAMINOPHEN 325 MG TAB PO PRN (20:15)
[2024-06-15] MEDS ORDERED: MORPHINE SULFATE INJ 2 MG/ml SYRG IV PRN ×2 (20:15→20:30)
[2024-06-15] MEDS: MORPHINE SULFATE INJ 2 MG/ml SYRG IM ONE (20:26)
[2024-06-15] MEDS ORDERED: NITROGLYCERIN 0.4 MG SL TAB SL PRN (20:30)
[2024-06-15] MEDS: ONDANSETRON HCL 4 MG/2 ML VIAL IV PRN (21:07)
[2024-06-15] MEDS: SODIUM CHLOR 0.9% PF (SALINE LOCK) 10ML VIAL/SYR IV SCH (22:21)
[2024-06-15] MEDS: ATORVASTATIN 20 MG TAB PO SCH (22:29)
[2024-06-15 23:00] VITALS: BP 139/84; PULSE 53; PULSE 57; RESP 17; RESP 18; TEMP 98.4; O2SAT 95; O2SAT 98
[2024-06-15] MEDS ORDERED: FAMO-12 PO (23:22)
[2024-06-15] MEDS ORDERED: PRAS10TA8 PO (23:22)
[2024-06-15] MEDS ORDERED: TERA1CAP52 PO (23:22)
[2024-06-15] MEDS ORDERED: TERA2CAP79 PO (23:22)
[2024-06-16] VITALS (14 sets, daily range): BP systolic 112–160; BP diastolic 62–92; PULSE 50–91; RESP 12–20; TEMP 97.4–98.3; O2SAT 93–99
[2024-06-16 09:32] LABS: Basophils # (auto) 0 10 ^3/uL (0-0.2); Basophils % (auto) 0.4 % (0.0-2.0); Eosinophils # (auto) 0 10 ^3/uL (0-0.8); Monocytes # (auto) 0.6 10 ^3/uL (0-1.3); White Blood Cell 6.1 10^3/uL (4.4-10.8)
[2024-06-16 09:37] LABS: Eosinophils % (auto) 0.7 % (0.0-7.0); Hematocrit 44.5 % (41.0-53.0); Hemoglobin 15.9 g/dL (13.5-17.5); Lymphocytes # (auto) 1.5 10 ^3/uL (0.4-5.4); Lymphocytes % (auto) 24.1 % (10.0-50.0); Mean Corpuscular Hemoglobin 35.2 pg (28.0-32.0); Mean Corpuscular Hgb Conc. 35.8 g/dL (32.0-36.0); Mean Corpuscular Volume 98.2 fL (80.0-100.0); Monocytes % (auto) 9.2 % (0.0-12.0); Neutrophils % (auto) 65.6 % (37.0-80.0); Nucleated Red Blood Cells % 0.1 %; Platelet Count (auto) 186 10^3/uL (140-450); Red Blood Cells 4.53 10^6/uL (4.5-5.90); Red Cell Distribution Width 12.6 % (11.8-14.3)
[2024-06-16] MEDS: ASPirin 81 mg TAB PO SCH (09:40)
[2024-06-16] MEDS: PANTOPRAZOLE 40 MG/10 ML VIAL INJ IV SCH (09:41)
[2024-06-16] MEDS: CLOPIDOGREL BISULFATE 75 MG TAB PO SCH (09:41)
[2024-06-16 09:50] LABS: Alanine Aminotransferase 28 U/L (7-40); Albumin 4.2 g/dL (3.2-4.8); Alkaline Phosphatase 77 U/L (46-116); Anion Gap 8 (5-15); Aspartate Aminotransferase 14 U/L (13-40); BUN/Creatinine Ratio 19.8 (10.0-20.0); Bilirubin, Total 0.6 mg/dL (0.2-1.0); Blood Urea Nitrogen 17 mg/dL (9-23); Calcium 9.4 mg/dL (8.7-10.4); Carbon Dioxide 23 mmol/L (20-31); Chloride 108 mmol/L (98-107); Glucose 130 mg/dL (74-106); Potassium 4.1 mmol/L (3.5-5.1); Sodium 139 mmol/L (136-145); Total Protein 6.8 g/dL (5.7-8.2)
[2024-06-16] MEDS: IODIXANOL 320MG/ML 100ML BTL IV ONE ×2 (12:37→14:17)
[2024-06-16] MEDS: HEPARIN IN NS 1000Units/500mL 1,500 ML ONE (12:37)
[2024-06-16 12:49] LABS: INR 1.03 (0.9-1.15); Partial Thromboplastin Time 28.8 SEC (24.5-34.5); Prothrombin Time 10.9 sec (9.3-11.8)
[2024-06-16] MEDS: VERAPAMIL 2.5MG/ML INJ 2ML VIAL IV ONE (13:09)
[2024-06-16] MEDS: fentaNYL CITRATE 100 MCG/2 ML VL ONE (13:09)
[2024-06-16] MEDS: HEPARIN SODIUM (PORCINE) 5000 UNITS/ML 1ML VIAL ONE (13:09)
[2024-06-16] MEDS: ANGIOMAX 250 MG VIAL IV ONE (13:09)
[2024-06-16] MEDS: SODIUM CHL 0.9% 50 ML ONE (13:10)
[2024-06-16] MEDS: MIDAZOLAM HCL 2MG/2ML 2ml VIAL (1mg/ml) ONE (13:10)
[2024-06-16] MEDS: LIDOCAINE 2%HCL (LOCAL ANESTH.) INJ 20ML MDV ONE (13:10)
[2024-06-16 13:39] LABS: Erythrocyte Sedimentation Rate 1 mm/hr (0-20)
[2024-06-16] MEDS: ATROPINE SULF 1 MG/10ml SYR ONE (14:17)
[2024-06-16] MEDS: CLOPIDOGREL BISULFATE 75 MG TAB ONE (14:17)
[2024-06-16] MEDS: LISINOPRIL 5 MG TAB PO ONE (18:51)
[2024-06-16 20:04] LABS: Urine Bacteria None Seen /hpf (None Seen)
[2024-06-16 20:17] LABS: Urine Blood Negative /uL (Negative); Urine Clarity Clear (Clear); Urine Color Yellow (Yellow); Urine Protein, UAD Negative (Negative); Urine Specific Gravity > 1.050 (1.001-1.035); Urine Urobilinogen 2 mg/dL (Negative); Urine WBC <1 /hpf (0 - 3)
[2024-06-16 20:30] LABS: Amphetamine Screen, Urine Neg (NEGATIVE)
[2024-06-16 20:31] LABS: Barbiturate Scree,Urine Neg (NEGATIVE); Benzodiazephine Screen, Urine Neg (NEGATIVE); Cannabinoid Screen, Urine Pos (NEGATIVE); Cocaine Screen, Urine Neg (NEGATIVE); Opiate Scree,Urine Neg (NEGATIVE); Phencyclidine Screen, Urine Neg (NEGATIVE)
[2024-06-16 21:43] LABS: COVID19 ANTIGEN SOFIA FIA NEGATIVE (NEGATIVE); Rapid Influenza A Negative (Negative); Rapid Influenza B Negative (Negative)
[2024-06-16] MEDS: ATORVASTATIN 20 MG TAB PO SCH (22:48)
[2024-06-16] MEDS: HYDROcodone-ACET 5/325MG TAB PO PRN (22:49)
[2024-06-17 01:00] VITALS: BP 123/73; PULSE 52; RESP 20; TEMP 98.1; O2SAT 97
[2024-06-17 05:00] VITALS: BP 117/78; PULSE 54; RESP 19; TEMP 98.2; O2SAT 96
[2024-06-17 07:02] LABS: Basophils # (auto) 0 10 ^3/uL (0-0.2); Basophils % (auto) 0.4 % (0.0-2.0); Eosinophils # (auto) 0.1 10 ^3/uL (0-0.8); Eosinophils % (auto) 1.2 % (0.0-7.0); Hematocrit 45.1 % (41.0-53.0); Hemoglobin 15.8 g/dL (13.5-17.5); Lymphocytes # (auto) 1.5 10 ^3/uL (0.4-5.4); Lymphocytes % (auto) 20.6 % (10.0-50.0); Mean Corpuscular Hemoglobin 34.4 pg (28.0-32.0); Mean Corpuscular Hgb Conc. 35.1 g/dL (32.0-36.0); Monocytes # (auto) 0.7 10 ^3/uL (0-1.3); Monocytes % (auto) 10.3 % (0.0-12.0); Neutrophils # (auto) 4.8 10 ^3/uL (1.6-8.6); Neutrophils % (auto) 67.5 % (37.0-80.0); Nucleated Red Blood Cells % 0.1 %; Platelet Count (auto) 183 10^3/uL (140-450); Red Blood Cells 4.61 10^6/uL (4.5-5.90); Red Cell Distribution Width 12.5 % (11.8-14.3); White Blood Cell 7.1 10^3/uL (4.4-10.8)
[2024-06-17 07:26] LABS: Chloride 106 mmol/L (98-107); Potassium 4.2 mmol/L (3.5-5.1); Sodium 139 mmol/L (136-145)
[2024-06-17 07:27] LABS: Anion Gap 7 (5-15); Calcium 9.4 mg/dL (8.7-10.4); Carbon Dioxide 26 mmol/L (20-31)
[2024-06-17 07:32] LABS: BUN/Creatinine Ratio 10.4 (10.0-20.0); Blood Urea Nitrogen 11 mg/dL (9-23); Glucose 109 mg/dL (74-106)
[2024-06-17 08:00] VITALS: PULSE 51; PULSE 67; RESP 20; O2SAT 94
[2024-06-17] MEDS ORDERED: METO-6 PO (08:26)
[2024-06-17] MEDS ORDERED: LISI-275 PO (08:26)
[2024-06-17] MEDS ORDERED: CLOP75TA70 PO (08:26)
[2024-06-17] MEDS ORDERED: ASPI1TAB20 PO (08:26)
[2024-06-17] MEDS ORDERED: ATOR20TA50 PO (08:26)
[2024-06-17 08:38] VITALS: BP 141/83; PULSE 51; RESP 20; TEMP 98.3; O2SAT 94
[2024-06-17] MEDS: LISINOPRIL 5 MG TAB PO SCH (10:00)
[2024-06-17] MEDS: METOPROLOL SUCCINATE XL 50 MG TAB PO SCH (10:41)
[2024-06-17 13:15] VITALS: BP 121/72; PULSE 52; RESP 20; TEMP 98.3; O2SAT 92
[2024-06-17 16:56] VITALS: BP 129/77; PULSE 55; RESP 20; TEMP 98.5; O2SAT 95
== END 2024-06-17 16:56 | disposition home or self-care (01) | DRG 322 ==
LOC: ER 13:50 → EDBD 13:50 → TELE 20:20 → TELE-WESTW 22:46
PROVIDERS: ADMIT Internal Medicine; ATTEND Internal Medicine
PROC: 027034Z Dilation of Coronary Artery, One Artery with Drug-eluting Intraluminal Device, Percutaneous Approach (ICD-10-PCS; principal; 2024-06-16)
PROC: 4A023N7 Measurement of Cardiac Sampling and Pressure, Left Heart, Percutaneous Approach (ICD-10-PCS; 2024-06-16)
PROC: B211YZZ Fluoroscopy of Multiple Coronary Arteries using Other Contrast (ICD-10-PCS; 2024-06-16)
DX: I25.110 Atherosclerotic heart disease of native coronary artery with unstable angina pectoris (principal); I24.9 Acute ischemic heart disease, unspecified; N40.0 Benign prostatic hyperplasia without lower urinary tract symptoms; E78.1 Pure hyperglyceridemia; K21.9 Gastro-esophageal reflux disease without esophagitis; I10 Essential (primary) hypertension; E78.5 Hyperlipidemia, unspecified; Z20.822 Contact with and (suspected) exposure to COVID-19; E66.9 Obesity, unspecified; I25.2 Old myocardial infarction; Z83.3 Family history of diabetes mellitus; Z87.891 Personal history of nicotine dependence; Z98.61 Coronary angioplasty status; Z82.49 Family history of ischemic heart disease and other diseases of the circulatory system; Z68.30 Body mass index [BMI] 30.0-30.9, adult
CPT/HCPCS: 36415; 71045; 80048; 80053; 80061; 80307; 81001; 83036; 83735; 84443; 84484; 85025; 85610; 85652; 85730; 86141; 87426; 87804; 93005; 93306; 99152; G0378; J2250; J2405; J2470; Q9967

== ENCOUNTER 2024-06-19 11:22 | Inpatient (IN) | payer OTHER ==
[~2024-06-19] VITALS: Ht 165.1 cm; Wt 83.3 kg
[~2024-06-19 11:22] MED LIST changes: +ATOR20TA50 PO; -CARV-214 PO; +FAMO-12 PO; -MELO15TA29 PO; +METO-6 PO; -ROSU20TA56 PO; +TERA1CAP52 PO; +TERA2CAP79 PO
[2024-06-19 11:41] LABS: Basophils # (auto) 0 10 ^3/uL (0-0.2); Eosinophils # (auto) 0 10 ^3/uL (0-0.8); Monocytes # (auto) 0.6 10 ^3/uL (0-1.3); Neutrophils # (auto) 4.6 10 ^3/uL (1.6-8.6); Red Cell Distribution Width 12.6 % (11.8-14.3)
[2024-06-19 11:43] LABS: Basophils % (auto) 0.3 % (0.0-2.0); Eosinophils % (auto) 0.4 % (0.0-7.0); Hematocrit 45.6 % (41.0-53.0); Lymphocytes # (auto) 1.9 10 ^3/uL (0.4-5.4); Lymphocytes % (auto) 26.7 % (10.0-50.0); Mean Corpuscular Hemoglobin 34.5 pg (28.0-32.0); Mean Corpuscular Hgb Conc. 35.1 g/dL (32.0-36.0); Mean Corpuscular Volume 98.1 fL (80.0-100.0); Monocytes % (auto) 7.9 % (0.0-12.0); Neutrophils % (auto) 64.7 % (37.0-80.0); Nucleated Red Blood Cells % 0.1 %; Platelet Count (auto) 200 10^3/uL (140-450); Red Blood Cells 4.64 10^6/uL (4.5-5.90); White Blood Cell 7.2 10^3/uL (4.4-10.8)
[2024-06-19 11:59] LABS: Alanine Aminotransferase 24 U/L (7-40); Alkaline Phosphatase 76 U/L (46-116); Anion Gap 5 (5-15); BUN/Creatinine Ratio 10.7 (10.0-20.0); Blood Urea Nitrogen 11 mg/dL (9-23); Calcium 9.9 mg/dL (8.7-10.4); Carbon Dioxide 26 mmol/L (20-31); Chloride 108 mmol/L (98-107); Glucose 149 mg/dL (74-106); Sodium 139 mmol/L (136-145)
[2024-06-19 12:00] LABS: Albumin 4.6 g/dL (3.2-4.8); Aspartate Aminotransferase 13 U/L (13-40); Bilirubin, Total 0.8 mg/dL (0.2-1.0); Total Protein 7.3 g/dL (5.7-8.2)
[2024-06-19 12:30] VITALS: PULSE 53; RESP 16; O2SAT 98
[2024-06-19 15:19] LABS: Urine Bacteria None Seen /hpf (None Seen); Urine WBC None Seen /hpf (0 - 3)
[2024-06-19 15:30] LABS: Urine Blood Negative /uL (Negative); Urine Clarity Clear (Clear); Urine Color Colorless (Yellow); Urine Protein, UAD Negative (Negative); Urine Specific Gravity 1.007 (1.001-1.035); Urine Urobilinogen Normal (Negative)
[2024-06-19] MEDS: ASPirin 325 MG TAB PO ONE (15:58)
[2024-06-19] MEDS: NITROGLYCERIN 2% OINT 1GM PKG TD ONE (15:58)
[2024-06-19] MEDS ORDERED: HYDROcodone-ACET 5/325MG TAB PO PRN (18:15)
[2024-06-19] MEDS ORDERED: HYDROmorphone HCL 2 MG/ML VL/or syr IV PRN (18:15)
[2024-06-19] MEDS ORDERED: DOCUSATE SOD 100 MG CAP PO PRN (18:15)
[2024-06-19] MEDS ORDERED: NITROGLYCERIN 0.4 MG SL TAB SL PRN (18:15)
[2024-06-19] MEDS ORDERED: MORPHINE SULFATE INJ 2 MG/ml SYRG IV PRN (18:15)
[2024-06-19] MEDS ORDERED: ONDANSETRON HCL 4 MG/2 ML VIAL IV PRN (18:15)
[2024-06-19] MEDS: CLOPIDOGREL BISULFATE 75 MG TAB PO ONE (18:33)
[2024-06-19] MEDS: HEPARIN SODIUM (PORCINE) 5000 UNITS/ML 1ML VIAL IV ONE (18:44)
[2024-06-19] MEDS: HEPARIN DRIP/D5W 100UNITS/ML 250 ML IV SCH (18:44)
[2024-06-19 19:28] LABS: Basophils # (auto) 0 10 ^3/uL (0-0.2); Basophils % (auto) 0.4 % (0.0-2.0); Eosinophils # (auto) 0 10 ^3/uL (0-0.8); Lymphocytes # (auto) 1.5 10 ^3/uL (0.4-5.4); Mean Corpuscular Hemoglobin 34.8 pg (28.0-32.0); Monocytes # (auto) 0.5 10 ^3/uL (0-1.3); Neutrophils # (auto) 4.6 10 ^3/uL (1.6-8.6); Nucleated Red Blood Cells % 0.1 %; White Blood Cell 6.6 10^3/uL (4.4-10.8)
[2024-06-19 19:30] LABS: Eosinophils % (auto) 0.6 % (0.0-7.0); Hematocrit 41.6 % (41.0-53.0); Hemoglobin 14.9 g/dL (13.5-17.5); Lymphocytes % (auto) 22.2 % (10.0-50.0); Mean Corpuscular Hgb Conc. 35.9 g/dL (32.0-36.0); Monocytes % (auto) 8.3 % (0.0-12.0); Neutrophils % (auto) 68.5 % (37.0-80.0); Platelet Count (auto) 183 10^3/uL (140-450); Red Blood Cells 4.29 10^6/uL (4.5-5.90); Red Cell Distribution Width 12.5 % (11.8-14.3)
[2024-06-19 19:38] LABS: INR 1.04 (0.9-1.15); Partial Thromboplastin Time 27.1 SEC (24.5-34.5)
[2024-06-19] MEDS: LORazepam 2MG/ML-1ML VIAL IV ONE (20:52)
[2024-06-19] MEDS: SODIUM CHLOR 0.9% PF (SALINE LOCK) 10ML VIAL/SYR IV SCH (22:00)
[2024-06-20] VITALS (7 sets, daily range): BP systolic 111–120; BP diastolic 67–81; PULSE 49–67; RESP 19–20; TEMP 97.7–98.8; O2SAT 94–97
[2024-06-20 07:42] LABS: Basophils # (auto) 0 10 ^3/uL (0-0.2); Basophils % (auto) 0.3 % (0.0-2.0); Eosinophils # (auto) 0.1 10 ^3/uL (0-0.8); Eosinophils % (auto) 0.7 % (0.0-7.0); Hematocrit 42.5 % (41.0-53.0); Hemoglobin 15.2 g/dL (13.5-17.5); Lymphocytes # (auto) 1.7 10 ^3/uL (0.4-5.4); Lymphocytes % (auto) 22.7 % (10.0-50.0); Mean Corpuscular Hemoglobin 34.9 pg (28.0-32.0); Mean Corpuscular Hgb Conc. 35.8 g/dL (32.0-36.0); Mean Corpuscular Volume 97.4 fL (80.0-100.0); Monocytes # (auto) 0.6 10 ^3/uL (0-1.3); Monocytes % (auto) 8.7 % (0.0-12.0); Neutrophils # (auto) 4.9 10 ^3/uL (1.6-8.6); Neutrophils % (auto) 67.6 % (37.0-80.0); Nucleated Red Blood Cells % 0.1 %; Platelet Count (auto) 174 10^3/uL (140-450); Red Blood Cells 4.37 10^6/uL (4.5-5.90); Red Cell Distribution Width 12.4 % (11.8-14.3); White Blood Cell 7.3 10^3/uL (4.4-10.8)
[2024-06-20 07:49] LABS: INR 1.07 (0.9-1.15); Partial Thromboplastin Time 65.5 SEC (24.5-34.5); Prothrombin Time 11.3 sec (9.3-11.8)
[2024-06-20 07:57] LABS: Alanine Aminotransferase 22 U/L (7-40); Albumin 4.1 g/dL (3.2-4.8); Alkaline Phosphatase 69 U/L (46-116); Anion Gap 8 (5-15); Aspartate Aminotransferase 14 U/L (13-40); Bilirubin, Total 0.9 mg/dL (0.2-1.0); Blood Urea Nitrogen 15 mg/dL (9-23); Calcium 9.4 mg/dL (8.7-10.4); Carbon Dioxide 24 mmol/L (20-31); Chloride 107 mmol/L (98-107); Glucose 98 mg/dL (74-106); Sodium 139 mmol/L (136-145); Total Protein 6.5 g/dL (5.7-8.2)
[2024-06-20] MEDS: ASPirin-EC 81 mg tab PO SCH (10:39)
[2024-06-20] MEDS: CLOPIDOGREL BISULFATE 75 MG TAB PO SCH (10:39)
[2024-06-20] MEDS ORDERED: hydrALAZINE HCL 20 MG/ML VL IV PRN (12:45)
[2024-06-20 13:02] LABS: INR 1.07 (0.9-1.15); Partial Thromboplastin Time 61.1 SEC (24.5-34.5); Prothrombin Time 11.3 sec (9.3-11.8)
[2024-06-20] MEDS: ACETAMINOPHEN 325 MG TAB PO PRN (20:45)
[2024-06-20] MEDS: METOPROLOL TARTRATE 25 MG TAB PO SCH (22:00)
[2024-06-20] MEDS: MELATONIN 5 MG TAB PO ONE (22:12)
[2024-06-21] VITALS (8 sets, daily range): BP systolic 117–140; BP diastolic 59–76; PULSE 47–64; RESP 16–20; TEMP 97.6–98.9; O2SAT 95–99
[2024-06-21 06:52] LABS: Basophils # (auto) 0 10 ^3/uL (0-0.2); Basophils % (auto) 0.4 % (0.0-2.0); Eosinophils # (auto) 0 10 ^3/uL (0-0.8); Eosinophils % (auto) 0.8 % (0.0-7.0); Hematocrit 43.7 % (41.0-53.0); Hemoglobin 15.4 g/dL (13.5-17.5); Lymphocytes # (auto) 1.8 10 ^3/uL (0.4-5.4); Lymphocytes % (auto) 32.3 % (10.0-50.0); Mean Corpuscular Hemoglobin 34.2 pg (28.0-32.0); Mean Corpuscular Hgb Conc. 35.3 g/dL (32.0-36.0); Mean Corpuscular Volume 96.9 fL (80.0-100.0); Monocytes # (auto) 0.6 10 ^3/uL (0-1.3); Monocytes % (auto) 10.8 % (0.0-12.0); Neutrophils # (auto) 3.1 10 ^3/uL (1.6-8.6); Neutrophils % (auto) 55.7 % (37.0-80.0); Nucleated Red Blood Cells % 0.1 %; Platelet Count (auto) 169 10^3/uL (140-450); Red Blood Cells 4.51 10^6/uL (4.5-5.90); Red Cell Distribution Width 12.3 % (11.8-14.3); White Blood Cell 5.5 10^3/uL (4.4-10.8)
[2024-06-21 07:08] LABS: INR 1.06 (0.9-1.15); Partial Thromboplastin Time 62.9 SEC (24.5-34.5); Prothrombin Time 11.2 sec (9.3-11.8)
[2024-06-21 07:18] LABS: Alanine Aminotransferase 25 U/L (7-40); Albumin 4.3 g/dL (3.2-4.8); Alkaline Phosphatase 74 U/L (46-116); Anion Gap 7 (5-15); Aspartate Aminotransferase 15 U/L (13-40); BUN/Creatinine Ratio 13.5 (10.0-20.0); Blood Urea Nitrogen 14 mg/dL (9-23); Calcium 9.6 mg/dL (8.7-10.4); Carbon Dioxide 25 mmol/L (20-31); Chloride 108 mmol/L (98-107); Glucose 98 mg/dL (74-106); Sodium 140 mmol/L (136-145)
[2024-06-21 07:19] LABS: Bilirubin, Total 0.7 mg/dL (0.2-1.0); Total Protein 6.8 g/dL (5.7-8.2)
[2024-06-21] MEDS: LORazepam 0.5 MG TAB PO ONE (10:28)
[2024-06-21] MEDS: TEMAZEPAM 15 MG CAP PO PRN (21:40)
[2024-06-22] VITALS (9 sets, daily range): BP systolic 103–136; BP diastolic 52–79; PULSE 46–54; RESP 13–17; TEMP 97.4–98.3; O2SAT 92–95
[2024-06-22 07:23] LABS: Basophils # (auto) 0 10 ^3/uL (0-0.2); Eosinophils # (auto) 0.1 10 ^3/uL (0-0.8); Hemoglobin 15.5 g/dL (13.5-17.5); INR 1.03 (0.9-1.15); Lymphocytes # (auto) 1.6 10 ^3/uL (0.4-5.4); Monocytes # (auto) 0.7 10 ^3/uL (0-1.3); Neutrophils # (auto) 3.9 10 ^3/uL (1.6-8.6); Partial Thromboplastin Time 27.9 SEC (24.5-34.5); Prothrombin Time 10.9 sec (9.3-11.8)
[2024-06-22 07:26] LABS: Alanine Aminotransferase 30 U/L (7-40); Albumin 4.4 g/dL (3.2-4.8); Alkaline Phosphatase 74 U/L (46-116); Anion Gap 6 (5-15); Aspartate Aminotransferase 14 U/L (13-40); BUN/Creatinine Ratio 12.7 (10.0-20.0); Basophils % (auto) 0.5 % (0.0-2.0); Blood Urea Nitrogen 13 mg/dL (9-23); Calcium 9.6 mg/dL (8.7-10.4); Carbon Dioxide 25 mmol/L (20-31); Chloride 108 mmol/L (98-107); Glucose 94 mg/dL (74-106); Hematocrit 43.7 % (41.0-53.0); Lymphocytes % (auto) 24.9 % (10.0-50.0); Mean Corpuscular Hemoglobin 34.4 pg (28.0-32.0); Mean Corpuscular Hgb Conc. 35.4 g/dL (32.0-36.0); Mean Corpuscular Volume 97.2 fL (80.0-100.0); Monocytes % (auto) 11.6 % (0.0-12.0); Nucleated Red Blood Cells % 0.1 %; Platelet Count (auto) 175 10^3/uL (140-450); Potassium 3.9 mmol/L (3.5-5.1); Red Blood Cells 4.49 10^6/uL (4.5-5.90); Red Cell Distribution Width 12.4 % (11.8-14.3); Sodium 139 mmol/L (136-145); White Blood Cell 6.4 10^3/uL (4.4-10.8)
[2024-06-22 07:27] LABS: Bilirubin, Total 0.8 mg/dL (0.2-1.0); Total Protein 6.9 g/dL (5.7-8.2)
[2024-06-22] MEDS: HEPARIN SODIUM (PORCINE) 5000 UNITS/ML 1ML VIAL ONE (07:43)
[2024-06-22] MEDS: VERAPAMIL 2.5MG/ML INJ 2ML VIAL IV ONE (07:43)
[2024-06-22] MEDS: fentaNYL CITRATE 100 MCG/2 ML VL ONE (07:43)
[2024-06-22] MEDS: IODIXANOL 320MG/ML 100ML BTL IV ONE ×2 (08:13)
[2024-06-22] MEDS: MIDAZOLAM HCL 2MG/2ML 2ml VIAL (1mg/ml) ONE (08:13)
[2024-06-22] MEDS: LIDOCAINE 2%HCL (LOCAL ANESTH.) INJ 20ML MDV ONE (08:13)
[2024-06-22] MEDS: HEPARIN IN NS 1000Units/500mL 1,500 ML ONE (08:13)
[2024-06-22] MEDS: ATROPINE SULF 1 MG/10ml SYR ONE (08:14)
[2024-06-22] MEDS: SODIUM CHL 0.9% 0 ML ONE (08:19)
[2024-06-22] MEDS: ANGIOMAX 250 MG VIAL IV ONE (08:19)
[2024-06-22] MEDS ORDERED: PRAS10TA8 PO (10:45)
[2024-06-22] MEDS ORDERED: TRAZ-228 PO (10:45)
== END 2024-06-22 14:20 | disposition home or self-care (01) | DRG 282 ==
LOC: ER 11:22 → TELE 18:13 → TELE-WESTW 22:35
PROVIDERS: ADMIT Internal Medicine; ATTEND Internal Medicine
PROC: 4A023N7 Measurement of Cardiac Sampling and Pressure, Left Heart, Percutaneous Approach (ICD-10-PCS; principal; 2024-06-22)
PROC: B211YZZ Fluoroscopy of Multiple Coronary Arteries using Other Contrast (ICD-10-PCS; 2024-06-22)
DX: I21.4 Non-ST elevation (NSTEMI) myocardial infarction (principal); I25.10 Atherosclerotic heart disease of native coronary artery without angina pectoris; I10 Essential (primary) hypertension; E78.5 Hyperlipidemia, unspecified; K21.9 Gastro-esophageal reflux disease without esophagitis; R00.1 Bradycardia, unspecified; E66.9 Obesity, unspecified; Z68.30 Body mass index [BMI] 30.0-30.9, adult; N40.0 Benign prostatic hyperplasia without lower urinary tract symptoms; Z87.891 Personal history of nicotine dependence; Z83.3 Family history of diabetes mellitus; Z95.5 Presence of coronary angioplasty implant and graft
CPT/HCPCS: 36415; 71046; 80053; 81001; 84484; 85025; 85610; 85730; 93005; 93458; 99152; G0378; J2250; Q9967

== ENCOUNTER 2025-06-02 10:23 | Inpatient (IN) | payer OTHER ==
[2025-06-02] VITALS (17 sets, daily range): BP systolic 116–142; BP diastolic 40–92; PULSE 46–89; RESP 14–18; TEMP 97.2–98; O2SAT 94–100
[~2025-06-02] VITALS: Ht 165.1 cm; Wt 88.5 kg
[~2025-06-02 10:23] MED LIST changes: -CLOP75TA70 PO; -FAMO-12 PO; -METO-6 PO; +PRAS10TA8 PO; -TERA2CAP79 PO; +TRAZ-228 PO
[2025-06-02] MEDS: CLOPIDOGREL BISULFATE 75 MG TAB PO ONE (10:45)
[2025-06-02] MEDS: HEPARIN 1,000 UNITS/ml 1ML VIAL IV ONE (10:45)
[2025-06-02] MEDS: MORPHINE SULFATE 4 MG/ML SYR/VIAL IV ONE (10:45)
--- NOTE | 2025-06-02 10:45 | ED.PDOC ---
HPI Comments 55y M who presents to the ED via EMS for chief complaint of chest pain. Pt states he was at [facility] urgent care this AM and EMS was called pt has been having chest pain for the past 3x days. Pt states he was at gym working out earlier this AM and started to have chest pain and came to urgent care for evaluation. Pt states he had associated shortness of breath and EMS was called. EMS arrived on scene and gave pt ASA and pt was brought to the ED. Pt in the ED, states his chest pain is intermittent, and states he did take nitro yesterday when chest pain episode occured. Pt otherwise in the ED, has noted history of past NC with 4x stents placed and on plavix. Pt otherwise denies any other symptoms at this time. Time Seen by MD: 10:40 Primary Care Provider: EDISON Reviewed Notes: Bulb Sorter Notes, Medications, Allergies Allergies: Coded Allergies: NO KNOWN ALLERGIES (Unverified , 04/15/20) Home Meds Active Scripts Lisinopril (Lisinopril) 5 Mg Tab, 5 MG PO DAILY for 30 Days, #30 TAB 2 Refills Prov:GARY ALVARADO RESIDENT 06/17/24 Atorvastatin Calcium (ATORVASTATIN CALCIUM) 20 Mg Tab, 80 MG PO HS for 30 Days, #120 TAB 2 Refills Prov:GARY ALVARADO RESIDENT 06/17/24 Aspirin (Aspir-81) 81 Mg Tab, 1 TAB PO DAILY for 30 Days, #30 TAB 1 Refill Prov:GARY ALVARADO RESIDENT 06/17/24 Reported Medications Trazodone Hcl (Trazodone Hcl) 100 Mg Tab, 100 MG PO HS, MG 06/22/24 Prasugrel HCl (Prasugrel) 10 Mg Tab, 10 MG PO DAILY, TAB 06/22/24 Terazosin Hcl (Terazosin Hcl) 1 Mg Cap, 1 MG PO for 30 Days, MG 06/15/24 Pantoprazole Sodium Sesquihydr (Protonix) 40 Mg Tab, 40 MG PO DAILY, #30 TAB 09/16/22 Information Source: Patient, Emergency Med Personnel Mode of Arrival: EMS Brought in by: EMS Severity: Severe Timing: Days Duration: Since onset Prehospital treatment: 12 Lead EKG, Treatment (ASA) Location: Chest (R) Radiation: No Radiation Quality: Sharp Onset: At Rest, With Light Exertion Cardiac Risk Factors: Hyperlipidemia, HTN PE Risk Factors: None History of: Similar pain in past, NC Modifying Factors: Exertion Associated Signs and Symptoms: SOB Past Medical History PAST MEDICAL HISTORY: CAD, GERD, High Lipids, HTN, NC Surgical History: Hernia Repair, PTCA Family History Family History: Family hx of DM, Family hx of heart hayley Social History Smoker: Quit Less Than 1 Year Alcohol: Denies ETOH Use Drugs: Denies Drug Use Lives In: Home Constitutional: denies: chills, diaphoresis, fatigue, fever, malaise, sweats, weakness, others EENTM: denies: blurred vision, double vision, ear bleeding, ear discharge, ear drainage, ear pain, ear ringing, eye pain, eye redness, hearing loss, mouth pain, mouth swelling, nasal discharge, nose bleeding, nose congestion, nose pain, photophobia, tearing, throat pain, throat swelling, voice changes, others Respiratory: reports: shortness of breath; denies: cough, hemoptysis, orthopnea, SOB at rest, SOB with excertion, stridor, wheezing, others Cardiovascular: reports: chest pain; denies: dizzy spells, diaphoresis, Dyspnea on exertion, edema, irregular heart beat, left arm pain, lightheadedness, palpitations, PND, syncope, others Gastrointestinal: denies: abdomen distended, abdominal pain, blood streaked bowels, constipated, diarrhea, dysphagia, difficulty swallowing, hematemesis, melena, nausea, poor appetite, poor fluid intake, rectal bleeding, rectal pain, vomiting, others Genitourinary: denies: burning, dysuria, flank pain, frequency, hematuria, incontinence, penile discharge, penile sore, pain, testicle pain, testicle swelling, urgency, others Neurological: denies: dizziness, fainting, headache, left sided numbness, left sided weakness, numbness, paresthesia, pre-existing deficit, right sided numbness, right sided weakness, seizure, speech problems, tingling, tremors, weakness, others Musculoskeletal: denies: back pain, gout, joint pain, joint swelling, muscle pain, muscle stiffness, neck pain, others Integumetry: denies: bruises, change in color, change in hair/nails, dryness, laceration, lesions, lumps, rash, wounds, others Allergic/Immunocompromised: denies: Difficulty Healing, Frequent Infections, Hives, Itching, others Hematologic/Lymphatic: denies: anemia, blood clots, easy bleeding, easy bruising, swollen glands, others Endocrine: denies: excessive hunger, excessive sweating, excessive thirst, excessive urination, flushing, intolerance to cold, intolerance to heat, unexplained weight gain, unexplained weight loss, others Psychiatric: denies: anxiety, bipolar disorder, depression, hopeless, panic disorder, schizophrenia, sleepless, suicidal, others All Other Systems: Reviewed and Negative Physical Exam General Appearance: Moderate Distress HEENT: Normal ENT Inspection, Pharynx Normal, TMs Normal Neck: Full Range of Motion, Non-Tender, Normal, Normal Inspection Respiratory: Chest Non-Tender, Lungs Clear, No Accessory Muscle Use, No Respiratory Distress, Normal Breath Sounds Cardiovascular: No Edema, No JVD, No Murmur, No Gallop, Normal Peripheral Pulses, Regular Rate/Rhythm Breast Exam: Deferred Gastrointestinal: No Organomegaly, Non Tender, No Pulsatile Mass, Normal Bowel Sounds, Soft Genitalia: Deferred Pelvic: Deferred Rectal: Deferred Extremities: No calf tenderness, Normal capillary refill, Normal inspection, Normal range of motion, Non-tender, No pedal edema Musculoskeletal : Apperance: Normal Neurologic: Alert, drug safety data management specialist II-XII nml as Tested, No Motor Deficits, Normal Affect, Normal Mood, No Sensory Deficits Cerebellar Function: Normal Reflexes: Normal Skin: Dry, Normal Color, Warm Lymphatic: No Adenopathy EKG EKG : Pulse Rate (adult): 56 [place]: Normal Cardiac Rhythm: NSR Block: None Hypertrophy: None ST: Infarct (II, III, AVF) Comments ST elevation noted in inferior leads(II,II, AVF) Was a procedure done? Was a procedure done?: No CP Differential Dx Differential Diagnosis: A-fib, A-Flutter, Angina, Anxiety / Panic Attack, Atrial Dysrhythmia, Electrolyte Disorder, Heart Failure, NC, Pulmonary Embolus, PVC's, Sinus Tachycardia, Ventricular Dysrhythmia Other Differential Diagnosis acute coronary syndrome Differential Diagnosis: HTN Essential, HTN Accelerated, Medical NonCompliance X-Ray, Labs, Meds, VS Vital Signs Date Time Temp Pulse Resp B/P (MAP) Pulse Ox O2 Delivery O2 Flow Rate FiO2 06/02/25 10:49 56 06/02/25 10:45 56 06/02/25 10:44 62 18 98 Room Air* 0 21 06/02/25 10:36 98.2 62 18 134/77 98 98.2 Lab Test 06/02/25 10:26 Range/Units White Blood Count 5.3 4.4-10.8 10^3/uL Red Blood Count 4.73 4.5-5.90 10^6/uL Hemoglobin 15.8 13.5-17.5 g/dL Hematocrit 44.4 41.0-53.0 % Mean Corpuscular Volume 93.9 80.0-100.0 fL Mean Corpuscular Hemoglobin 33.5 H 28.0-32.0 pg Mean Corpuscular Hemoglobin Concent 35.6 32.0-36.0 g/dL Red Cell Distribution Width 12.8 11.8-14.3 % Platelet Count 183 140-450 10^3/uL Mean Platelet Volume 6.9 6.9-10.8 fL Neutrophils (%) (Auto) 62.3 37.0-80.0 % Lymphocytes (%) (Auto) 27.9 10.0-50.0 % Monocytes (%) (Auto) 8.9 0.0-12.0 % Eosinophils (%) (Auto) 0.3 0.0-7.0 % Basophils (%) (Auto) 0.6 0.0-2.0 % Neutrophils # (Auto) 3.3 1.6-8.6 10 ^3/uL Lymphocytes # (Auto) 1.5 0.4-5.4 10 ^3/uL Monocytes # (Auto) 0.5 0-1.3 10 ^3/uL Eosinophils # (Auto) 0 0-0.8 10 ^3/uL Basophils # (Auto) 0 0-0.2 10 ^3/uL Nucleated Red Blood Cells 0.1 % Sodium Level 141 136-145 mmol/L Potassium Level 4.0 3.5-5.1 mmol/L Chloride Level 104 98-107 mmol/L Carbon Dioxide Level 28 20-31 mmol/L Anion Gap 9 5-15 Blood Urea Nitrogen 15 9-23 mg/dL Creatinine 0.95 0.700-1.30 mg/dL Glomerular Filtration Rate Calc 94 >90 mL/min BUN/Creatinine Ratio 15.8 10.0-20.0 Serum Glucose 138 H 74-106 mg/dL Calcium Level 9.0 8.7-10.4 mg/dL Magnesium Level 2.1 1.6-2.6 mg/dL Total Bilirubin 0.7 0.2-1.0 mg/dL Aspartate Amino Transferase (AST) 19 13-40 U/L Alanine Aminotransferase (ALT) 30 7-40 U/L Alkaline Phosphatase 91 46-116 U/L Troponin I High Sensitivity 20 </=54 ng/L Total Protein 7.1 5.7-8.2 g/dL Albumin 4.3 3.2-4.8 g/dL PROCEDURE(s): CXRP - CHEST PORTABLE IMPRESSION: 1. No acute cardiopulmonary disease. IV Hep-Lock was established. The patient already received aspirin EN route. We did order heparin 4000 units IV push. The patient was also given morphine for the pain. The patient's CBC is within normal limits The chemistry panel is within normal limits The troponin level is 20 at this time We did call a STEMI on this patient. This was confirmed after we spoke with Dr. Jones who is the cash analyst on- call. The EKG was sent to him. LATONYA Jiang came down and evaluated the patient as well. The patient is now being taken to the research laboratory manager. Medical decision making was made to send the patient a research laboratory manager based on the EKG findings as well as the persistent chest pain. The patient's spouse has arrived and we also discussed the findings with the spouse. Images Reviewed?: Images reviewed and evaluated by me Time of 1ST Reevaluation: 11:00 Reevaluation 1ST: Unchanged Patient Education/Counseling: Diagnosis, Treatment, Prognosis Family Education/Counseling: Diagnosis, Treatment, Prognosis SEPSIS Sepsis Screen Physician Orders Chest Portable (06/02/25 10:40) Apprentice Jockey (06/02/25 10:31) Blood Pressure (06/02/25 10:31) Pulse Oximetry (06/02/25 10:31) Heplock Iv (06/02/25 10:31) Heplock Iv (06/02/25 10:31) Oxygen Per Hour (06/02/25 10:31) Electrocardigram (06/02/25 10:31) Troponin-I Hs (06/02/25 11:31) Troponin-I Hs (06/02/25 13:31) Electrocardigram (06/02/25 11:31) Electrocardigram (06/02/25 13:31) Obtain Consent For: (06/02/25 10:42) Shave Both Groins (06/02/25 10:42) Provide Education Materials (06/02/25 10:42) Obtain Consent For Anesthesia (06/02/25 10:42) Clopidogrel Bisulfate (Plavix) (06/02/25 10:45) Cl Left Heart Cath (06/02/25 11:09) Vital Signs Date Time Temp Pulse Resp B/P (MAP) Pulse Ox O2 Delivery O2 Flow Rate FiO2 06/02/25 10:49 56 06/02/25 10:45 56 06/02/25 10:44 62 18 98 Room Air* 0 21 06/02/25 10:36 98.2 62 18 134/77 98 98.2 Laboratory Tests Test 06/02/25 10:26 White Blood Count 5.3 10^3/uL (4.4-10.8) Departure 1 Departure Time of Disposition: 10:54 Impression: Primary Impression: Acute myocardial infarction Qualified Codes: I21.3 - ST elevation (STEMI) myocardial infarction of unspecified site Disposition: ADMITTED INPATIENT Admit to: ICU Condition: Guarded Critical Care Note Critical Care Time?: No Stability Stability form required: Yes Unstable for transfer: ICU, CCU, PCU, DEMAR (Intensive VS monitoring), ED Physician Assesment (Clinical assesment) Heart Score Heart Score: Heart Score Response (Comments) Value History Highly Suspicious [address]-Deviation 2 Age 45-64 1 Risk Factors >3 or Hx ASHD 2 Troponin N/A 0 Total 7 I personally scribed for DENIS SQUIRES MD ([email or web address]) on 06/02/25 at 10:45. Electronically submitted by Tatum Parks ([email or web address]). I personally scribed for DENIS SQUIRES MD ([email or web address]) on 06/02/25 at 11:19. Electronically submitted by Tatum Parks ([email or web address]). DENIS SQUIRES MD Jun 02, 2025 10:45
[2025-06-02] MEDS: IODIXANOL 320MG/ML 100ML BTL IV ONE (10:55)
[2025-06-02] MEDS: HEPARIN IN NS 1000Units/500mL 1,500 ML ONE (10:55)
[2025-06-02 10:59] LABS: Hematocrit 44.4 % (41.0-53.0); Hemoglobin 15.8 g/dL (13.5-17.5); Mean Corpuscular Hemoglobin 33.5 pg (28.0-32.0); Mean Corpuscular Volume 93.9 fL (80.0-100.0); Nucleated Red Blood Cells % 0.1 %
[2025-06-02] MEDS: LIDOCAINE 2%HCL (LOCAL ANESTH.) INJ 20ML MDV ONE (11:06)
[2025-06-02] MEDS: ANGIOMAX 250 MG VIAL IV ONE (11:06)
[2025-06-02] MEDS: HEPARIN SODIUM (PORCINE) 5000 UNITS/ML 1ML VIAL ONE (11:06)
[2025-06-02] MEDS: SODIUM CHL 0.9% 0 ML ONE (11:06)
[2025-06-02] MEDS: fentaNYL CITRATE 100 MCG/2 ML VL ONE (11:06)
[2025-06-02] MEDS: MIDAZOLAM HCL 2MG/2ML 2ml VIAL (1mg/ml) ONE (11:06)
[2025-06-02] MEDS: VERAPAMIL 2.5MG/ML INJ 2ML VIAL IV ONE (11:06)
--- NOTE | 2025-06-02 11:09 | DVH ---
CHEST RADIOGRAPH Indication: CP Technique: Single frontal view of the chest was obtained Comparison: XY CHEST PORTABLE on DOS: 06/15/24, CHEST XRAY 1 VIEW on DOS: 05/15/22, CXR1 on DOS: FINDINGS: Lines and Tubes: None Lungs: No focal consolidation. Pleura: No effusion. No pneumothorax. Cardiomediastinal contours: Unremarkable Bones: No acute osseous abnormality. IMPRESSION: 1. No acute cardiopulmonary disease. HS:Y
--- NOTE | 2025-06-02 11:13 | DVHINCON2 ---
Date Seen: Jun 02, 2025 Referring Physician MD Juan Reason for Consultation STEMI History of Present Illness This is a 55-year-old male patient who presents to the emergency room with chief complaint of chest pain for three days prior to emergency room arrival. The patient reports that the pain has been progressively getting worse over the last couple days especially last night. He reports the pain as unprovoked, intermittent, pressure-like in nature, substernal with radiation to his neck/jaw region as well as down his left arm. Associated symptoms include nausea. He reports taking one nitroglycerin 0.4 mg sublingual tablet with relief of symptoms. Today, the patient reports that the chest pain started again. He decided to go to [facility] urgent care today for further evaluation. A twelve lead electrocardiogram done at the urgent care reveals ST segment elevation to anteroseptal leads with changes to inferior leads.EMS was called and the patient was brought to emergency room for further evaluation. En route, the patient was loaded on 324 mg of aspirin. Upon ER arrival, a twelve lead electrocardiogram was obtained and reveals progressive ST-elevation to inferior leads. Significant past medical history includes coronary artery disease s/p multiple PTCAs X 4 PAULETTE (on aspirin and Plavix), myocardial infarction, hypertension, dyslipidemia, type 2 diabetes mellitus, benign prostatic hyperplasia, and obesity. The patient does not follow up with a milk pickup driver in the outpatient setting. Past Medical History Past medical history reviewed. No other significant than mentioned above. Past Surgical History Hernia repair Family History: Diabetes mellitus G8 FATHER G8 SISTER G8 SISTER FH: cancer maternal grandma maternal grandpa paternal grandma paternal grandpa FH: heart disease G8 FATHER Family History Family history reviewed. Social History Denies the use of tobacco, alcohol or illicit drugs. Allergies: Coded Allergies: NO KNOWN ALLERGIES (Unverified , 04/15/20) Home Meds Active Scripts Lisinopril (Lisinopril) 5 Mg Tab, 5 MG PO DAILY for 30 Days, #30 TAB 2 Refills Prov:GARY ALVARADO RESIDENT 06/17/24 Atorvastatin Calcium (ATORVASTATIN CALCIUM) 20 Mg Tab, 80 MG PO HS for 30 Days, #120 TAB 2 Refills Prov:GARY ALVARADO RESIDENT 06/17/24 Aspirin (Aspir-81) 81 Mg Tab, 1 TAB PO DAILY for 30 Days, #30 TAB 1 Refill Prov:GARY ALVARADO RESIDENT 06/17/24 Reported Medications Trazodone Hcl (Trazodone Hcl) 100 Mg Tab, 100 MG PO HS, MG 06/22/24 Prasugrel HCl (Prasugrel) 10 Mg Tab, 10 MG PO DAILY, TAB 06/22/24 Terazosin Hcl (Terazosin Hcl) 1 Mg Cap, 1 MG PO for 30 Days, MG 06/15/24 Pantoprazole Sodium Sesquihydr (Protonix) 40 Mg Tab, 40 MG PO DAILY, #30 TAB 09/16/22 Home Meds Home medications reviewed. Review of Systems Constitutional: No symptom reported Ears, Nose, & Throat: No symptom reported Eyes: No symptom reported Neurological: No symptoms reported Pulmonary/Respiratory: No symptoms reported Cardiovascular: Chest pain Gastrointestinal: No symptom reported Genitourinary: No symptom reported Musculoskeletal: No symptom reported Skin: No symptom reported Psychiatric: No symptom reported Endocrine: No symptom reported Hematologic/Lymphatic: No symptom reported Vital Signs Vital Signs Date Time Temp Pulse Resp B/P (MAP) Pulse Ox O2 Delivery O2 Flow Rate FiO2 06/02/25 10:49 56 06/02/25 10:44 18 98 Room Air* 0 21 06/02/25 10:36 98.2 134/77 98.2 Physical Exam General Appearance: Cooperative. Obese Pulmonary/Respiratory: Clear, bilateral breaths sounds. Cardiovascular/Chest: Regular rate and rhythm. Peripheral Pulses: 2+ Radial (R). 2+ Radial (L). Abdominal Exam: Normal bowel sounds. Ankle Exam: Negative ankle edema Lower extremities: Negative lower extremity edema Neuro/Mental Status: A/OX4, coherent. Thoughts/Psych: Normal thought pattern. Appropriate mood and affect. Good judgment and insight. Appearance: No acute distress. Skin Exam: Normal inspection. Normal color. Warm and dry. Labs/Diagnostic Data Labs Test 06/02/25 10:26 Range/Units Assessment Acute ST-elevation myocardial infarction Coronary artery disease s/p multiple PTCA's X 4 PAULETTE (aspirin and Plavix) Rule out structural heart disease Hypertension Dyslipidemia Type 2 diabetes mellitus Benign prostatic hyperplasia Obesity Plan/Recommendation We will continue with the following plan/recommendations (Dr. Jones): Plan discussed with the patient. The patient was loaded on aspirin 324 mg orally prior to emergency room arrival. A loading dose of Plavix (300mg) oral, was ordered while patient was in the emergency room. The patient will be emergently taken for a left heart catheterization. The procedure was discussed in full detail with the patient including possible risks which include but are not limited to: bleeding, contrast induced nephropathy, coronary dissection, stroke, and even . The patient is agreeable to undergo the procedure and will be taken at first available. Thank you for allowing us to care for this patient. Please call with any questions or concerns. Critical care time spent: 38 minutes This medical document was created using an electronic medical record system with voice recognition software and computerized dictation system. Although this document has been carefully reviewed, there might still be some phonetic and typographical errors. Occasional wrong-word or ``sound-alike substitutions may have occurred due to the inherent limitations of voice recognition software. These areas are purely typographical due to imperfections of the software pr ograms and do not reflect any compromise in the patient's medical care. Please read the chart carefully and recognize, using context, where these substitutions have occurred. Plan discussed with: Patient NYHA Physical activity limitations: NA Date of Service: Jun 02, 2025 Billing Provider: REJI ELAINE Cardiology Common Codes: 95957-GQEZTKR INP/OBS CARE (High) Cardiology Consultation Codes: 23488-LWDJPABGV CONSULT <45MIN REJI ELAINE Jun 02, 2025 11:13
[2025-06-02 11:14] LABS: Alanine Aminotransferase 30 U/L (7-40); Albumin 4.3 g/dL (3.2-4.8); Alkaline Phosphatase 91 U/L (46-116); Anion Gap 9 (5-15); BUN/Creatinine Ratio 15.8 (10.0-20.0); Blood Urea Nitrogen 15 mg/dL (9-23); Calcium 9.0 mg/dL (8.7-10.4); Carbon Dioxide 28 mmol/L (20-31); Chloride 104 mmol/L (98-107); Glucose 138 mg/dL (74-106); Magnesium 2.1 mg/dL (1.6-2.6); Potassium 4.0 mmol/L (3.5-5.1); Sodium 141 mmol/L (136-145); Total Protein 7.1 g/dL (5.7-8.2)
[2025-06-02 11:15] LABS: Bilirubin, Total 0.7 mg/dL (0.2-1.0)
--- NOTE | 2025-06-02 11:36 | DVHOP2 ---
Operative Report - 2 Report Details Date: 06/02/25 Preop Diagnosis: STEMI Postop Diagnosis: Mild CAD Surgeon: Bravo Jones MD Anesthesiologist: Conscious sedation Anesthesia: Mac, Local Consent: The patient was informed of the risks and benefits of the procedure. These include but are not limited to complications of anesthesia, postoperative infection, incomplete relief of symptoms, recurrence of symptoms, damage to blood vessels, nerves and tendons, deep venous thrombosis, pulmonary embolism and possible need for repeat surgery in the future. Complications: No complications Findings: Mild CAD Indications for Surgery: Acute ST-elevation myocardial infarction. Abnormal EKG. Chest pain. Name of Procedure Performed Left heart catheterization. Bilateral cine coronary angiography. Left ventriculography. Procedure Details Procedure Details: The anesthesia with a 2% lidocaine to the right wrist and full informed consent obtained the patient was prepped and draped in usual fashion followed by placement of a six Welsh sheath into the radial artery through which a six Welsh EBU 3.5 guide was placed for ventriculography and cannulation of both right and left coronary ostia without complications. Hemodynamics: Aortic blood pressure was 130/70. End-diastolic pressure was 12. There was no gradient across the aortic valve on pullback. Coronary anatomy the RCA is a large vessel it is normal in its proximal mid and distal segments. The PDA in the posterolateral branches are normal. There is mild stenosis of the mid RCA. Stented distal RCA without in stent restenosis. Left main is large and normal. Left anterior descending is normal. No stenosis in his proximal mid or distal segment. The circumflex is large and normal. Ventriculography in the ULLOA projection shows an EF of 65%. Impression: Normal left ventricular end-diastolic pressure at rest with normal ejection fraction. Mild CAD without severe CAD progression compared to the last angiogram last year. Recommendations: Continue medical therapy and risk factor modification. Condition Good Disposition Home Date of Service: Jun 02, 2025 Billing Provider: BRAVO JONES Sr., MD Cardiology Common Codes: 29198-NKJIHLA INP/OBS CARE (High) Cardiology Procedure Codes: 28026-OWVE HEART CATH W/INTRA INJ BRAVO JONES Sr., MD Jun 02, 2025 11:36
--- NOTE | 2025-06-02 11:41 | ECG ---
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
--- NOTE | 2025-06-02 11:41 | ECG ---
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
[2025-06-02] MEDS ORDERED: ACETAMINOPHEN 325 MG TAB PO PRN (13:30)
[2025-06-02] MEDS ORDERED: NITROGLYCERIN 0.4 MG SL TAB SL PRN ×2 (13:30)
[2025-06-02] MEDS ORDERED: ONDANSETRON HCL 4 MG/2 ML VIAL IV PRN (13:30)
[2025-06-02] MEDS ORDERED: MORPHINE SULFATE INJ 2 MG/ml SYRG IV PRN (13:30)
[2025-06-02] MEDS ORDERED: DEXTROSE (50%) 50ML SYRG IV PRN (13:30)
[2025-06-02] MEDS ORDERED: CLOP75TA70 PO (13:32)
--- NOTE | 2025-06-02 13:34 | DVHHP2 ---
History of Present Illness Reason for Visit: Chest pain History of Present Illness Jose Escalante is a 55-year-old male with past medical history of diabetes and PTCA x4 who presents to the ED with chest pain that started this Saturday that was radiating to his jaw. Patient reports that the pain is 5/10 sharp and intermittent. He reports that initially he was walking with him in his then went to the gym started to get palpitations then this morning started to come back on. He reports that he took a nitroglycerin which helped a little bit but still persisted with pain. He also stated that eventually he developed nausea and stated that because recently due to his insurance change he had accidentally gone to [facility] but should have gone to [facility]. He reports that he does not use home oxygen. He reports that he went to [facility] on Saturday and had 3 shots of Tequila at different times of the day. He reports that he was resting in bed and states that he heard his chest pounding which is when the pain 1st started. He reports that he typically does not drink. He denies any recent trauma or injury, recent sick contacts, recent ingestion of spoiled food, fever, chills, lightheadedness, weakness, dizziness, abdominal pain, vomiting, diarrhea. He also endorsed that initially he was recently diagnosed with diabetes and his A1c was 6.9 then dropped to 6.4 and was supposed to have another repeat this week. He reports that he has been exercising and walking constantly. Endocrine: Diabetes Past Surgical History: Other (PTCA x4) Family History: DM, Other (Dad with heart disease and diabetes) Smoke: No ALCOHOL: occassional Drugs: None Lives: with Family Domestic Violence: Neg Review of Systems Cardiovascular: Chest Pain Gastrointestinal: Nausea Allergies: Coded Allergies: NO KNOWN ALLERGIES (Unverified , 04/15/20) Exam Vital Signs Vital Signs Date Time Temp Pulse Resp B/P (MAP) Pulse Ox O2 Delivery O2 Flow Rate FiO2 06/02/25 12:01 48 16 116/72 (87) 94 06/02/25 10:44 Room Air* 0 21 06/02/25 10:36 98.2 98.2 General Appearance: Alert, Oriented X3, Cooperative, No acute distress HEENT: Atraumatic, PERRLA, EOMI, Mucous membr. moist/pink Respiratory: Clear to auscultation, Normal air movement Cardiovascular: Normal S1, Normal S2, No murmurs Abdominal: Normal bowel sounds, Soft Extremities: Normal pulses Skin: No significant lesion Neuro: Normal speech, Strength at 5/5 X4 ext, Normal tone, Sensation intact Psych/Mental Status: Mental status NL, Mood NL Labs/Xrays Labs Test 06/02/25 10:26 Range/Units White Blood Count 5.3 4.4-10.8 10^3/uL Red Blood Count 4.73 4.5-5.90 10^6/uL Hemoglobin 15.8 13.5-17.5 g/dL Hematocrit 44.4 41.0-53.0 % Mean Corpuscular Volume 93.9 80.0-100.0 fL Mean Corpuscular Hemoglobin 33.5 H 28.0-32.0 pg Mean Corpuscular Hemoglobin Concent 35.6 32.0-36.0 g/dL Red Cell Distribution Width 12.8 11.8-14.3 % Platelet Count 183 140-450 10^3/uL Mean Platelet Volume 6.9 6.9-10.8 fL Neutrophils (%) (Auto) 62.3 37.0-80.0 % Lymphocytes (%) (Auto) 27.9 10.0-50.0 % Monocytes (%) (Auto) 8.9 0.0-12.0 % Eosinophils (%) (Auto) 0.3 0.0-7.0 % Basophils (%) (Auto) 0.6 0.0-2.0 % Neutrophils # (Auto) 3.3 1.6-8.6 10 ^3/uL Lymphocytes # (Auto) 1.5 0.4-5.4 10 ^3/uL Monocytes # (Auto) 0.5 0-1.3 10 ^3/uL Eosinophils # (Auto) 0 0-0.8 10 ^3/uL Basophils # (Auto) 0 0-0.2 10 ^3/uL Nucleated Red Blood Cells 0.1 % Sodium Level 141 136-145 mmol/L Potassium Level 4.0 3.5-5.1 mmol/L Chloride Level 104 98-107 mmol/L Carbon Dioxide Level 28 20-31 mmol/L Anion Gap 9 5-15 Blood Urea Nitrogen 15 9-23 mg/dL Creatinine 0.95 0.700-1.30 mg/dL Glomerular Filtration Rate Calc 94 >90 mL/min BUN/Creatinine Ratio 15.8 10.0-20.0 Serum Glucose 138 H 74-106 mg/dL Calcium Level 9.0 8.7-10.4 mg/dL Magnesium Level 2.1 1.6-2.6 mg/dL Total Bilirubin 0.7 0.2-1.0 mg/dL Aspartate Amino Transferase (AST) 19 13-40 U/L Alanine Aminotransferase (ALT) 30 7-40 U/L Alkaline Phosphatase 91 46-116 U/L Troponin I High Sensitivity 20 </=54 ng/L Total Protein 7.1 5.7-8.2 g/dL Albumin 4.3 3.2-4.8 g/dL CHEST RADIOGRAPH Indication: CP Technique: Single frontal view of the chest was obtained Comparison: XY CHEST PORTABLE on DOS: 06/15/24, CHEST XRAY 1 VIEW on DOS: 05/15/22, CXR1 on DOS: 05/15/22 FINDINGS: Lines and Tubes: None Lungs: No focal consolidation. Pleura: No effusion. No pneumothorax. Cardiomediastinal contours: Unremarkable Bones: No acute osseous abnormality. IMPRESSION: 1. No acute cardiopulmonary disease. SEPSIS Sepsis Screen Date sepsis recognized/suspect: Jun 02, 2025 Time Sepsis recognized/suspect: 1030 Recent Procedure: No On Antibiotic Therapy: No Respiratory Rate >20: No Heart Rate >90: No Temp<36 C (96.8 F) or >38.3 C: No SBP <90 or MAP <65 mmHG: No New Acute Mental Status Change: No Is the patient on CPAP, BIPAP,: No Physician Orders Chest Portable (06/02/25 10:40) Chemical Packager (06/02/25 10:31) Blood Pressure (06/02/25 10:31) Pulse Oximetry (06/02/25 10:31) Heplock Iv (06/02/25 10:31) Heplock Iv (06/02/25 10:31) Oxygen Per Hour (06/02/25 10:31) Troponin-I Hs (06/02/25 11:31) Troponin-I Hs (06/02/25 13:31) Electrocardigram (06/02/25 13:31) Obtain Consent For: (06/02/25 10:42) Shave Both Groins (06/02/25 10:42) Provide Education Materials (06/02/25 10:42) Obtain Consent For Anesthesia (06/02/25 10:42) Cl Left Heart Cath (06/02/25 11:09) * Hospitalist Consult (06/02/25 ) Vital Signs Date Time Temp Pulse Resp B/P (MAP) Pulse Ox O2 Delivery O2 Flow Rate FiO2 06/02/25 12:01 48 16 116/72 (87) 94 06/02/25 11:46 50 16 123/76 (92) 95 06/02/25 11:36 51 16 140/88 (105) 95 06/02/25 10:49 56 06/02/25 10:45 56 06/02/25 10:44 62 18 98 Room Air* 0 21 06/02/25 10:36 98.2 62 18 134/77 98 98.2 Laboratory Tests Test 06/02/25 10:26 White Blood Count 5.3 10^3/uL (4.4-10.8) Medications Medications Dose Ordered Sig/David Route Start Time Stop Time Status Last Admin Dose Admin Iodixanol 64,000 mg STK-MED ONCE IV 06/02/25 10:55 06/02/25 10:52 DC 06/02/25 10:55 12,800 MG Assessment/Plan Assessment/Plan Assessment STEMI Alcohol use Acute hypoxic respiratory failure on oxygen History of diabetes History of PTCA x4 (2018, 2019, and 2023) Plan Admit to tele Supportive O2 Angio Aspirin + statin Antiemetics Pain management Hemoglobin A1c ISS and Accu-Cheks TSH Lipid panel UA UDS Free T4 Diet Home medications reconciled DVT prophylaxis-SCDs PUD prophylaxis-not indicated no history of GERD or GI bleed Discussed plan of care with patient and nurse Counseled patient on cessation of alcohol use [id number] Preventive counseling healthy eating habits, physical activity, and regular checkups Plan discussed with: Patient Date of Service: Jun 02, 2025 Billing Provider: REINA SCHRADER Common Visit Codes: [id number] INP/OBS CARE (HIGH) Secondary Visit Codes: [id number] COUNSELING IND REINA SCHRADER Jun 02, 2025 13:34
[2025-06-02 15:18] LABS: Urine Protein, UAD Negative (Negative)
[2025-06-02 15:21] LABS: Amphetamine Screen, Urine Neg (NEGATIVE); Barbiturate Scree,Urine Neg (NEGATIVE); Benzodiazephine Screen, Urine Pos (NEGATIVE); Cannabinoid Screen, Urine Neg (NEGATIVE); Cocaine Screen, Urine Neg (NEGATIVE); Opiate Scree,Urine Neg (NEGATIVE); Phencyclidine Screen, Urine Neg (NEGATIVE)
[2025-06-02] MEDS: MORPHINE SULFATE 4 MG/ML SYR/VIAL IV PRN ×2 (15:35→22:49)
[2025-06-02] MEDS ORDERED: TRAZ-228 PO (15:42)
[2025-06-02] MEDS ORDERED: NITR0.4S29 SL (15:43)
[2025-06-02] MEDS ORDERED: LORA-1121 PO (15:43)
[2025-06-02] MEDS ORDERED: METO25TA5 PO (15:55)
[2025-06-02] MEDS: InsuLIN REG 1unit/0.01ml Soln (100units/ml) SC SCH (17:00)
[2025-06-02] MEDS: ACCU-CHEK COMFORT CURVE STRIP VI SCH (17:50)
[2025-06-02] MEDS: TERAZOSIN HCL 1 MG CAP PO SCH (21:40)
[2025-06-02] MEDS: ATORVASTATIN 20 MG TAB PO SCH (21:41)
[2025-06-02] MEDS ORDERED: ATORVASTATIN 20 MG TAB PO SCH (22:00)
[2025-06-03] VITALS (8 sets, daily range): BP systolic 104–129; BP diastolic 54–83; PULSE 49–56; RESP 16–18; TEMP 97.7–98.6; O2SAT 94–98
--- NOTE | 2025-06-03 01:17 | ECG ---
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
[2025-06-03 06:38] LABS: Hematocrit 41.5 % (41.0-53.0); Hemoglobin 14.9 g/dL (13.5-17.5); Mean Corpuscular Hemoglobin 33.4 pg (28.0-32.0); Mean Corpuscular Volume 93.0 fL (80.0-100.0); Nucleated Red Blood Cells % 0.0 %
[2025-06-03 06:47] LABS: Anion Gap 10 (5-15); Carbon Dioxide 25 mmol/L (20-31); Chloride 106 mmol/L (98-107); Potassium 4.3 mmol/L (3.5-5.1); Sodium 141 mmol/L (136-145)
[2025-06-03 06:53] LABS: BUN/Creatinine Ratio 17.6 (10.0-20.0); Blood Urea Nitrogen 16 mg/dL (9-23)
[2025-06-03 06:54] LABS: Magnesium 1.9 mg/dL (1.6-2.6)
[2025-06-03 06:55] LABS: Cholesterol 116 mg/dL (< 200)
[2025-06-03 06:57] LABS: Calcium 8.6 mg/dL (8.7-10.4); Glucose 121 mg/dL (74-106); HDL Cholesterol 28 mg/dL (40-59); Triglycerides 152 mg/dL (< 150)
[2025-06-03] MEDS: CLOPIDOGREL BISULFATE 75 MG TAB PO SCH (10:08)
[2025-06-03] MEDS: LISINOPRIL 5 MG TAB PO SCH (10:08)
--- NOTE | 2025-06-03 11:14 | DVHPN2 ---
Consult Progress Note Subjective Other Systems: Patient in sinus bradycardia on cardiac catheterization technologist Objective vital signs Vital Sign Date Time Temp Pulse Resp B/P (MAP) Pulse Ox O2 Delivery O2 Flow Rate FiO2 06/03/25 10:09 58 16 119/78 06/03/25 09:00 97.7 96 97.7 06/03/25 08:00 Room Air* 0 21 Total Intake and Output 06/02/25 06/02/25 06/03/25 15:00 23:00 07:00 Intake Total 400 ml Balance 400 ml medications Current Medications Medications Dose Ordered Sig/David Route Start Time Stop Time Status Last Admin Dose Admin Aspirin 81 mg DAILY PO 06/02/25 13:37 06/03/25 10:07 81 MG Morphine Sulfate 2 mg Q30MP PRN IV 06/02/25 13:30 06/02/25 15:35 2 MG Acetaminophen 650 mg Q6HP PRN PO 06/02/25 13:30 Nitroglycerin 0.4 mg Q5MINP PRN SL 06/02/25 13:30 Ondansetron HCl 4 mg Q4HP PRN IV 06/02/25 13:30 Diagnostic Test (Pha) 1 strip ACHS 06/02/25 17:00 06/03/25 06:21 1 STRIP Insulin Human Regular ACHS SC 06/02/25 17:00 Dextrose 50 ml UD PRN IV 06/02/25 13:30 Atorvastatin Calcium 80 mg HS PO 06/02/25 22:00 06/02/25 21:41 80 MG Lisinopril 5 mg DAILY PO 06/03/25 10:00 06/03/25 10:08 5 MG Terazosin HCl 1 mg HS PO 06/02/25 22:00 06/02/25 21:40 1 MG Clopidogrel Bisulfate 75 mg DAILY PO 06/03/25 10:00 06/03/25 10:08 75 MG Morphine Sulfate 2 mg Q4HPRN PRN IV 06/02/25 16:15 06/03/25 10:09 2 MG Examination: GENERAL:Normal, LUNGS:Normal, CVS:Normal, NEURO:Normal laboratory and microbiology Laboratory Tests 06/03/25 06:13 Test 06/03/25 06:13 Range/Units Serum Glucose 121 H 74-106 mg/dL Problem List/Assessment/Plan Problem List/Assessment/Plan ST segment elevation myocardial infarction with no obstructive coronary artery disease (ELDER-MINOCA) Coronary artery disease s/p multiple PTCA's X 4 PAULETTE (aspirin and Plavix) Hypertension Dyslipidemia Type 2 diabetes mellitus Benign prostatic hyperplasia Obesity Plan/Recommendations (Dr. Jones): The patient was taken for a coronary angiogram with left heart catheterization which revealed mild coronary artery disease without severe CAD progression. The patient has a previous history of coronary artery disease with previous stent placement (x4). Continue with dual antiplatelet therapy and lipid-lowering agent. Ventriculography reveals an EF of approximately 65%. Transthoracic echocardiogram reveals an EF of 55-60% with no severe valve abnormalities noted. Patient is still complaining of episodic chest pain. Consider Ranexa therapy with improved heart rate. There is no further inpatient cardiac workup indicated at this time. The patient will need to follow up with his primary special events assistant in the outpatient setting within 1-2 weeks post discharge. Thank you for allowing us to care for this patient. Please call with any questions or concerns. This medical document was created using an electronic medical record system with voice recognition software and computerized dictation system. Although this document has been carefully reviewed, there might still be some phonetic and typographical errors. Occasional wrong-word or ``sound-alike substitutions may have occurred due to the inherent limitations of voice recognition software. These areas are purely typographical due to imperfections of the software programs and do not reflect any compromise in the patient's medical care. Please read the chart carefully and recognize, using context, where these substitutions have occurred. Plan discussed with: Patient Date of Service: Jun 03, 2025 Billing Provider: REJI ELAINE Common Visit Codes: [id number] INP/OBS CARE(HIGH) REJI ELAINE Jun 03, 2025 11:14
--- NOTE | 2025-06-03 12:18 | DVHPN2 ---
Reviewed: Care Plan, H&P, Labs, Medications, Previous Orders, Radiology Changes from previous H/P or p: No Changes Cardiovascular: Chest Pain Gastrointestinal: Nausea Objective Vitals Vital Signs Date Time Temp Pulse Resp B/P (MAP) Pulse Ox O2 Delivery O2 Flow Rate FiO2 06/03/25 10:09 58 16 119/78 06/03/25 09:00 97.7 96 97.7 06/03/25 08:00 Room Air* 0 21 Intake/Output Intake and Output 06/03/25 07:00 Intake Total 400 ml Balance 400 ml Intake Oral 400 ml # Voids 3 Medications Current Medications Medications Dose Ordered Sig/David Route Start Time Stop Time Status Last Admin Dose Admin Aspirin 81 mg DAILY PO 06/02/25 13:37 06/03/25 10:07 81 MG Morphine Sulfate 2 mg Q30MP PRN IV 06/02/25 13:30 06/02/25 15:35 2 MG Acetaminophen 650 mg Q6HP PRN PO 06/02/25 13:30 Nitroglycerin 0.4 mg Q5MINP PRN SL 06/02/25 13:30 Ondansetron HCl 4 mg Q4HP PRN IV 06/02/25 13:30 Diagnostic Test (Pha) 1 strip ACHS 06/02/25 17:00 06/03/25 06:21 1 STRIP Insulin Human Regular ACHS SC 06/02/25 17:00 Dextrose 50 ml UD PRN IV 06/02/25 13:30 Atorvastatin Calcium 80 mg HS PO 06/02/25 22:00 06/02/25 21:41 80 MG Lisinopril 5 mg DAILY PO 06/03/25 10:00 06/03/25 10:08 5 MG Terazosin HCl 1 mg HS PO 06/02/25 22:00 06/02/25 21:40 1 MG Clopidogrel Bisulfate 75 mg DAILY PO 06/03/25 10:00 06/03/25 10:08 75 MG Morphine Sulfate 2 mg Q4HPRN PRN IV 06/02/25 16:15 06/03/25 10:09 2 MG Laboratory Results Laboratory Tests 06/03/25 06:13 Chemistry Test 06/03/25 06:13 Calcium Level 8.6 mg/dL (8.7-10.4) L Magnesium Level 1.9 mg/dL (1.6-2.6) Lipid panel Test 06/03/25 06:13 Cholesterol Level 116 mg/dL (< 200) HDL Cholesterol 28 mg/dL (40-59) L Triglycerides Level 152 mg/dL (< 150) H Urinalysis Test 06/02/25 14:47 Urine Color Light-yellow (Yellow) Urine Clarity Clear (Clear) Urine pH 6.5 (5.0-9.0) Urine Specific [place] 1.039 (1.001-1.035) Urine Protein Negative (Negative) Urine Ketones Negative (Negative) Urine Blood Negative /uL (Negative) Urine Nitrite Negative (Negative) Urine Bilirubin Negative (Negative) Urine Urobilinogen Normal mg/dL (Negative) Urine Leukocyte Esterase Negative /uL (Negative) Urine RBC 1 /hpf (0 - 3) Urine Microscopic WBC /HPF (0-3) Urine Squamous Epithelial Cells None seen /hpf (<5) Urine Bacteria None seen /hpf (None Seen) Urine Glucose Normal mg/dL (Normal) Labs and/or images reviewed: Labs reviewed by me, Image(s) reviewed by me Assessment/Plan Assessment/Plan Acute ST-elevation myocardial infarction status post left heart catheterization by Dr. Jones with the findings of normal coronaries 65 percent ejection fraction Coronary artery disease s/p multiple PTCA's X 4 PAULETTE (aspirin and Plavix) Rule out structural heart disease History of C-spine injury 2019 worker's comp case Hypertension Dyslipidemia Type 2 diabetes mellitus Benign prostatic hyperplasia Obesity Patient Was placed on Ranexa cardiology as he continues to complaining of chest Karla at bedside Plan discussed with: Patient Date of Service: Jun 03, 2025 Billing Provider: DIOMEDES JOHNSTON MD Common Visit Codes: [id number] INP/OBS CARE(HIGH) DIOMEDES JOHNSTON MD Jun 03, 2025 12:18
--- NOTE | 2025-06-03 15:04 | DVHSR ---
APPROVED REPORT EXAM: Two-dimensional and M-mode echocardiogram with Doppler and color Doppler. Blood Pressure: 116/72 mmHg INDICATION Chest Pain RISK FACTORS Height: 5' 8", Weight: 176 DIMENSIONS LVDd4.1 (3.8-5.7cm)LA (2D)3.8 (1.9-4.0cm)Aortic Root3.0 (2.0-3.7cm) LVDs2.9 (2.5-4.0cm)LA (MM) (1.9-4.0cm)Aortic Cusp Exc1.6 (1.5-2.0cm) EF (%) 60.0 (55-70%)Rt. Atrium3.9 (1.9-4.0cm)Asc. Aorta cm IVSd1.1 (0.7-1.1cm)RV (D) (1.8-2.4cm) PWd1.1 (0.7-1.1cm) Mitral Valve MitralMitral Stenosis E wave0.90m/sMV Mean GR.mmHg A wave0.90m/sMV Peak GR.mmHg E/A ratio1.02D MVAcm2 Aortic Valve Aortic ValveAortic Stenosis V11.00m/Robin Mean GR.6mmHg V21.60m/Robin Peak GR.11mmHg LVOT Diameter2.0 (1.8-2.4cm)Doppler AVA1.96cm2 AI P 1/2 Hfwq857.90ms Pulmonic Valve V20.70m/s Tricuspid Valve TR Velocity2.30m/s [id number] Conclusion lvef 55-60% normal rv function normal atrian no severe valve abnormalities noted
[2025-06-04 01:00] VITALS: BP 120/77; PULSE 49; RESP 17; TEMP 98.1; O2SAT 94
[2025-06-04 05:00] VITALS: BP 113/69; PULSE 49; RESP 18; TEMP 97.7; O2SAT 96
[2025-06-04 07:48] VITALS: PULSE 63; RESP 18
[2025-06-04 09:00] VITALS: BP 121/74; PULSE 52; RESP 16; TEMP 97.8; O2SAT 95
--- NOTE | 2025-06-04 09:36 | DVHPN2 ---
Reviewed: Care Plan, H&P, Labs, Medications, Previous Orders, Radiology Changes from previous H/P or p: No Changes Cardiovascular: Chest Pain Gastrointestinal: Nausea Objective Vitals Vital Signs Date Time Temp Pulse Resp B/P (MAP) Pulse Ox O2 Delivery O2 Flow Rate FiO2 06/04/25 09:27 121/74 06/04/25 07:48 63 18 Room Air* 0 21 06/04/25 05:00 97.7 96 97.7 Intake/Output Intake and Output 06/04/25 07:00 Intake Total 1700 ml Balance 1700 ml Intake Oral 1700 ml # Voids 4 # Bowel Movements 1 Medications Current Medications Medications Dose Ordered Sig/David Route Start Time Stop Time Status Last Admin Dose Admin Aspirin 81 mg DAILY PO 06/02/25 13:37 06/04/25 09:27 81 MG Morphine Sulfate 2 mg Q30MP PRN IV 06/02/25 13:30 06/02/25 15:35 2 MG Acetaminophen 650 mg Q6HP PRN PO 06/02/25 13:30 Nitroglycerin 0.4 mg Q5MINP PRN SL 06/02/25 13:30 Ondansetron HCl 4 mg Q4HP PRN IV 06/02/25 13:30 Diagnostic Test (Pha) 1 strip ACHS 06/02/25 17:00 06/04/25 06:08 1 STRIP Insulin Human Regular ACHS SC 06/02/25 17:00 Dextrose 50 ml UD PRN IV 06/02/25 13:30 Atorvastatin Calcium 80 mg HS PO 06/02/25 22:00 06/03/25 21:06 80 MG Lisinopril 5 mg DAILY PO 06/03/25 10:00 06/04/25 09:27 5 MG Terazosin HCl 1 mg HS PO 06/02/25 22:00 06/03/25 21:06 1 MG Clopidogrel Bisulfate 75 mg DAILY PO 06/03/25 10:00 06/04/25 09:27 75 MG Morphine Sulfate 2 mg Q4HPRN PRN IV 06/02/25 16:15 06/04/25 05:18 2 MG Laboratory Results Laboratory Tests 06/03/25 06:13 Urinalysis Test 06/02/25 14:47 Urine Color Light-yellow (Yellow) Urine Clarity Clear (Clear) Urine pH 6.5 (5.0-9.0) Urine Specific [place] 1.039 (1.001-1.035) Urine Protein Negative (Negative) Urine Ketones Negative (Negative) Urine Blood Negative /uL (Negative) Urine Nitrite Negative (Negative) Urine Bilirubin Negative (Negative) Urine Urobilinogen Normal mg/dL (Negative) Urine Leukocyte Esterase Negative /uL (Negative) Urine RBC 1 /hpf (0 - 3) Urine Microscopic WBC /HPF (0-3) Urine Squamous Epithelial Cells None seen /hpf (<5) Urine Bacteria None seen /hpf (None Seen) Urine Glucose Normal mg/dL (Normal) Labs and/or images reviewed: Labs reviewed by me, Image(s) reviewed by me Assessment/Plan Assessment/Plan Acute ST-elevation myocardial infarction status post left heart catheterization by Dr. Jones with the findings of normal coronaries 65 percent ejection fraction Coronary artery disease s/p multiple PTCA's X 4 PAULETTE (aspirin and Plavix) Rule out structural heart disease: Echo 65 % fraction History of C-spine injury 2019 worker's comp case Hypertension Dyslipidemia Type 2 diabetes mellitus Benign prostatic hyperplasia Obesity Patient Was placed on Ranexa by cardiology as he continues to complaining of chest Karla at bedside Plan discussed with: Patient Date of Service: Jun 04, 2025 Billing Provider: DIOMEDES JOHNSTON MD Common Visit Codes: [id number] INP/OBS CARE(HIGH) DIOMEDES JOHNSTON MD Jun 04, 2025 09:36
--- NOTE | 2025-06-04 10:31 | DVHDS2 ---
Discharge Summary Date of Admission Jun 02, 2025 at 13:16 Date of Discharge: Jun 04, 2025 Admitting Diagnosis Chest pain Wounds: Left heart catheterization Labs/Diagnostic Data: Laboratory Results Test 06/04/25 05:55 06/03/25 06:13 06/02/25 14:47 06/02/25 10:26 POC Glucose 130 mg/dl (70-106) White Blood Count 5.7 10^3/uL (4.4-10.8) Red Blood Count 4.46 10^6/uL (4.5-5.90) Hemoglobin 14.9 g/dL (13.5-17.5) Hematocrit 41.5 % (41.0-53.0) Mean Corpuscular Volume 93.0 fL (80.0-100.0) Mean Corpuscular Hemoglobin 33.4 pg (28.0-32.0) Mean Corpuscular Hemoglobin Concent 35.9 g/dL (32.0-36.0) Red Cell Distribution Width 12.4 % (11.8-14.3) Platelet Count 165 10^3/uL (140-450) Mean Platelet Volume 6.7 fL (6.9-10.8) Neutrophils (%) (Auto) 64.6 % (37.0-80.0) Lymphocytes (%) (Auto) 24.8 % (10.0-50.0) Monocytes (%) (Auto) 9.1 % (0.0-12.0) Eosinophils (%) (Auto) 0.9 % (0.0-7.0) Basophils (%) (Auto) 0.6 % (0.0-2.0) Neutrophils # (Auto) 3.7 10 ^3/uL (1.6-8.6) Lymphocytes # (Auto) 1.4 10 ^3/uL (0.4-5.4) Monocytes # (Auto) 0.5 10 ^3/uL (0-1.3) Eosinophils # (Auto) 0.1 10 ^3/uL (0-0.8) Basophils # (Auto) 0 10 ^3/uL (0-0.2) Nucleated Red Blood Cells 0.0 % Sodium Level 141 mmol/L (136-145) Potassium Level 4.3 mmol/L (3.5-5.1) Chloride Level 106 mmol/L (98-107) Carbon Dioxide Level 25 mmol/L (20-31) Anion Gap 10 (5-15) Blood Urea Nitrogen 16 mg/dL (9-23) Creatinine 0.91 mg/dL (0.700-1.30) Glomerular Filtration Rate Calc 99 mL/min (>90) BUN/Creatinine Ratio 17.6 (10.0-20.0) Serum Glucose 121 mg/dL (74-106) Calcium Level 8.6 mg/dL (8.7-10.4) Magnesium Level 1.9 mg/dL (1.6-2.6) Troponin I High Sensitivity 262 ng/L (</=54) Triglycerides Level 152 mg/dL (< 150) Cholesterol Level 116 mg/dL (< 200) LDL Cholesterol 58 mg/dL (< 100) HDL Cholesterol 28 mg/dL (40-59) Urine Color Light-yellow (Yellow) Urine Clarity Clear (Clear) Urine pH 6.5 (5.0-9.0) Urine Specific [place] 1.039 (1.001-1.035) Urine Protein Negative (Negative) Urine Ketones Negative (Negative) Urine Blood Negative /uL (Negative) Urine Nitrite Negative (Negative) Urine Bilirubin Negative (Negative) Urine Urobilinogen Normal mg/dL (Negative) Urine Leukocyte Esterase Negative /uL (Negative) Urine RBC 1 /hpf (0 - 3) Urine Microscopic WBC /HPF (0-3) Urine Squamous Epithelial Cells None seen /hpf (<5) Urine Bacteria None seen /hpf (None Seen) Urine Glucose Normal mg/dL (Normal) Urine Opiates Screen Neg (NEGATIVE) Urine Fentanyl Screen Pos (NEGATIVE) Urine Barbiturates Screen Neg (NEGATIVE) Urine Phencyclidine Screen Neg (NEGATIVE) Urine Amphetamines Screen Neg (NEGATIVE) Urine Benzodiazepines Screen Pos (NEGATIVE) Urine Cocaine Screen Neg (NEGATIVE) Urine Cannabinoids Screen Neg (NEGATIVE) Hemoglobin A1c 6.2 % A1C (<5.7) Total Bilirubin 0.7 mg/dL (0.2-1.0) Aspartate Amino Transferase (AST) 19 U/L (13-40) Alanine Aminotransferase (ALT) 30 U/L (7-40) Alkaline Phosphatase 91 U/L (46-116) Total Protein 7.1 g/dL (5.7-8.2) Albumin 4.3 g/dL (3.2-4.8) Free Thyroxine (T4) Calculated 1.14 ng/dL (0.89-1.76) Other Laboratory Tests 06/03/25 06:13 Brief Hx & Hospital Course: 59-year-old male with a history of hypertension hypercholesterolemia diabetes BPH obesity history of C-spine surgery 2019 [employer] case came in complaining of chest pain . Echo 65 percent ejection fraction troponin borderline elevated 235 left heart catheterization by Dr. Fernandez with a normal coronaries. History of coronary artery disease status post multiple stents on aspirin and Plavix. Cardiology cleared for discharge vital signs are stable patient is asymptomatic discharged home reviewed home medications. Patient takes multiple medications including aspirin and Plavix. Advised to continue all medications follow up with the Dr. Jones and his primary Dr. at the bedside at the time of discharge and agreeable with the hand flatwork finisher Bella at bedside Consults/Reason for consult Cardiology Dr. Jones Operations or Procedures Left heart catheterization Condition at Discharge: Fair Final Diagnosis/Problems List Acute ST-elevation myocardial infarction status post left heart catheterization by Dr. 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 in two weeks Resume all previous home medications Medications: None Scheduled Aspirin (Aspir-81), 1 TAB PO DAILY Atorvastatin Calcium (Atorvastatin Calcium), 80 MG PO HS Clopidogrel Bisulfate (Clopidogrel), 1 TAB PO DAILY, (Reported) Lisinopril (Lisinopril), 5 MG PO DAILY Pantoprazole Sodium Sesquihydr (Protonix), 40 MG PO DAILY, (Reported) Prasugrel HCl (Prasugrel), 10 MG PO DAILY, (Reported) Scheduled PRN Lorazepam (Ativan Tablet), 1 TAB PO DAILY PRN for ANXIETY, (Reported) Metoprolol Tartrate (Metoprolol Tartrate), 25 MG PO DAILY PRN for SBP>140, (Reported) Nitroglycerin (Ntrostat Sublingual), 0.4 MG SL PRN PRN for FOR CHEST PAIN, (Reported) Trazodone Hcl (Trazodone Hcl), 100 MG PO HSPRN PRN for FOR INSOMNIA, (Reported) Miscellaneous Medications Terazosin Hcl (Terazosin Hcl), 1 MG PO, (Reported) 39 (Time taken for discharge summary 39 minutes) Discharge Statement: "Patient was advised to return to the ER or call 911 if any headaches, dizziness, shortness of breath, chest pain, abdominal pain, bleeding, fevers, or worsening of medical condition. Patient was counseled about treatment plan, medications, possible side effects, patientverbalized understanding. All questions were answered to the best of my ability. This discharge took greater then 30 minutes in planning, reviewing documentation, counseling the patient, and discussing with other team members." ASSESSMENT ASSESSMENT Hospital Course Uneventful Assessment Acute ST-elevation myocardial infarction status post left heart catheterization by Dr. Jones with the findings of normal coronaries 65 percent ejection fraction Coronary artery disease s/p multiple PTCA's X 4 PAULETTE (aspirin and Plavix) Rule out structural heart disease: Echo 65 % fraction History of C-spine injury 2019 worker's comp case Hypertension Dyslipidemia Type 2 diabetes mellitus Benign prostatic hyperplasia Obesity Date of Service: Jun 04, 2025 Billing Provider: DIOMEDES JOHNSTON MD Common Visit Codes: [id number]-[id number] DISCH DAY >30min DIOMEDES JOHNSTON MD Jun 04, 2025 10:31
[2025-06-04 11:27] VITALS: BP 121/74; TEMP 36.6
[2025-06-04 12:52] VITALS: BP 112/70; PULSE 54; RESP 16; TEMP 97.8; O2SAT 97
== END 2025-06-04 13:03 | disposition home or self-care (01) | DRG 280 ==
LOC: EDBD 10:23 → EDUNIT# 10:23 → ER 10:34 → OVERFLOW 13:16 → TELE-EAST 14:13
PROVIDERS: ADMIT Family Medicine; ATTEND Family Medicine
PROC: 4A023N7 Measurement of Cardiac Sampling and Pressure, Left Heart, Percutaneous Approach (ICD-10-PCS; principal; 2025-06-02)
PROC: B211YZZ Fluoroscopy of Multiple Coronary Arteries using Other Contrast (ICD-10-PCS; 2025-06-02)
PROC: B215YZZ Fluoroscopy of Left Heart using Other Contrast (ICD-10-PCS; 2025-06-02)
DX: I21.29 ST elevation (STEMI) myocardial infarction involving other sites (principal); J96.01 Acute respiratory failure with hypoxia; F10.90 Alcohol use, unspecified, uncomplicated; I25.10 Atherosclerotic heart disease of native coronary artery without angina pectoris; E66.9 Obesity, unspecified; N40.0 Benign prostatic hyperplasia without lower urinary tract symptoms; E11.9 Type 2 diabetes mellitus without complications; I10 Essential (primary) hypertension; E78.00 Pure hypercholesterolemia, unspecified; Y90.9 Presence of alcohol in blood, level not specified; K21.9 Gastro-esophageal reflux disease without esophagitis; Z83.3 Family history of diabetes mellitus; Z82.49 Family history of ischemic heart disease and other diseases of the circulatory system; Z87.891 Personal history of nicotine dependence; Z95.5 Presence of coronary angioplasty implant and graft; Z68.32 Body mass index [BMI] 32.0-32.9, adult; Z88.5 Allergy status to narcotic agent
CPT/HCPCS: 36415; 71045; 80048; 80053; 80061; 80307; 81001; 82962; 83036; 83735; 84439; 84484; 85025; 93005; 93306; 93458; 99152; C1887; G0378; J2250; Q9967